=== PATIENT | female | born 1990 | race Caucasian/White ===

== ENCOUNTER 2020-05-09 08:00 | Emergency (ER) | payer SELFPAY ==
--- NOTE | 2020-05-09 08:29 | EDM.PDOC ---
ED HPI GENERAL MEDICAL PROBLEM - General Chief Complaint: Abdominal Pain Stated Complaint: HEAVY MENSTRAL BAD CRAMPS Time Seen by Provider: 05/09/20 08:29 Source of Information: Reports: Patient, RN, RN Notes Reviewed History Limitations: Reports: No Limitations - History of Present Illness INITIAL COMMENTS - FREE TEXT/NARRATIVE: Patient presents to ER with complaint of lower abdominal cramping that began yesterday. Patient states she felt she had a gas pain, went to the bathroom, but did vomit quite a bit. She did begin bleeding vaginally at that time. Patient states that she is 1 week ahead of her period. States she generally has a heavy period, but this 1 seems heavier than normal. Patient states she is not on control, as they are trying to get . Patient also states she has had 1 miscarriage in the past. Admits to still having her appendix, gallbladder. Denies fever chills, admits to nausea, vomiting. States last bowel movement was this morning, and states she does need to have another bowel movement. States these have been normal for her. Patient states she did soak through 3 pads last night. States she is on her second pad today. Patient states she has been using ibuprofen for pain, little relief. Onset: Gradual Onset Date: 05/08/20 Lower Abdomen Pain Score (Numeric/FACES): 6 - Related Data Allergies Allergy/AdvReac Type Severity Reaction Status Date / Time No Known Allergies Allergy Verified 05/09/20 08:14 Home Meds: Home Meds Ondansetron [Zofran ODT] 4 mg PO Q6H PRN #10 tab.dis 10/25/18 [Rx] Albuterol Sulfate [Albuterol Sulfate Hfa] 2 inh INH Q4HR PRN 10/26/18 [History] Budesonide/Formoterol Fumarate [Symbicort 80-4.5 Mcg Inhaler] 2 inh INH DAILY 10/26/18 [History] Sucralfate [Carafate] 1 tab PO BID 05/09/20 [History] Past Medical History HEENT History: Reports: None Cardiovascular History: Reports: None Respiratory History: Reports: Asthma Gastrointestinal History: Reports: Hiatal Hernia Other Gastrointestinal History: ulcers Genitourinary History: Reports: None 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 Musculoskeletal History: Reports: None Neurological History: Reports: Seizure Psychiatric History: Reports: None Endocrine/Metabolic History: Reports: None, Obesity/BMI 30+ Hematologic History: Reports: None Immunologic History: Reports: None Oncologic (Cancer) History: Reports: None Dermatologic History: Reports: None - Infectious Disease History Infectious Disease History: Reports: Hepatitis C - Past Surgical History Head Surgeries/Procedures: Reports: None Social & Family History - Family History Family Medical History: Noncontributory - Tobacco Use Smoking Status *Q: Current Every Day Smoker Years of Tobacco use: 11 Packs/Tins Daily: 0.5 Second Hand Smoke Exposure: No - Caffeine Use Caffeine Use: Reports: Soda - Recreational Drug Use Recreational Drug Type: Reports: Marijuana/Hashish Other Recreational Drug Type: smoked marijuana yesterday - Living Situation & Occupation Living situation: Reports: Single, with Significant Other (Boyfriend) Occupation: Employed ([employer]) ED ROS GENERAL - Review of Systems Review Of Systems: Comprehensive ROS is negative, except as noted in HPI. ED EXAM, GI/ABD - Physical Exam Exam: See Below Exam Limited By: No Limitations General Appearance: Alert, WD/WN, Mild Distress Eyes: Bilateral: Normal Appearance, EOMI Ears: Normal External Exam, Hearing Grossly Normal Nose: Normal Inspection Throat/Mouth: Normal Inspection, Normal Voice, No Airway Compromise Head: Atraumatic, Normocephalic Neck: Normal Inspection, Supple, Non-Tender, Full Range of Motion Respiratory/Chest: No Respiratory Distress, Lungs Clear, Normal Breath Sounds, N o Accessory Muscle Use, Chest Non-Tender Cardiovascular: Normal Peripheral Pulses, Regular Rate, Rhythm, No Edema, No Gallop, No JVD, No Murmur, No Rub GI/Abdominal Exam: Normal Bowel Sounds, Soft, No Distention, Tender (LLQ, RLQ) (Female) Exam: Deferred Rectal (Female) Exam: Deferred Back Exam: Normal Inspection, Full Range of Motion, NT Extremities: Normal Inspection, Normal Range of Motion, Non-Tender, Normal Capillary Refill, No Pedal Edema Neurological: Alert, Oriented, CN II-XII Intact, Normal Cognition, Normal Gait, Normal Reflexes, No Motor/Sensory Deficits Psychiatric: Normal Affect, Normal Mood Skin Exam: Warm, Dry, Intact, Normal Color, No Rash Lymphatic: No Adenopathy Course - Vital Signs Last Recorded V/S: Last Vital Signs Temp 97.6 F 05/09/20 08:08 Pulse 84 09/18/20 08:08 Resp 18 05/09/20 08:08 BP 126/79 05/09/20 08:08 Pulse Ox 100 05/09/20 08:08 - Orders/Labs/Meds Labs: Laboratory Tests 05/09/20 05/09/20 05/09/20 Range/Units 08:39 08:39 08:39 WBC (5.0-10.0) 10^3/uL RBC (4.2-5.4) 10^6/uL Hgb (12.0-16.0) g/dL Hct (37.0-47.0) % MCV (80-100) fL MCH (27.0-34.0) pg MCHC (33.0-35.0) g/dL Plt Count (150-450) 10^3/uL Neut % (Auto) (42.2-75.2) % Lymph % (Auto) (20.5-50.1) % [place] % (Auto) (2-8) % Eos % (Auto) (1.0-3.0) % Baso % (Auto) (0.0-1.0) % Sodium (136-145) mmol/L Potassium (3.5-5.1) mmol/L Chloride (98-107) mmol/L Carbon Dioxide (21-32) mmol/L Anion Gap (7-13) mEq/L BUN (7-18) mg/dL Creatinine (0.55-1.02) mg/dL Est Cr Clr Drug Dosing mL/min Estimated GFR (MDRD) BUN/Creatinine Ratio (No establ ref range) Glucose (74-99) mg/dL Calcium (8.5-10.1) mg/dL Total Bilirubin (0.2-1.0) mg/dL AST (15-37) U/L ALT (14-59) U/L Alkaline Phosphatase (46-116) U/L Total Protein (6.4-8.2) g/dL Albumin (3.4-5.0) g/dL Globulin Albumin/Globulin Ratio Urine Color Dark yellow (YELLOW) Urine Appearance Cloudy (CLEAR) Urine pH 7.5 (5.0-9.0) Ur Specific [place] 1.025 (1.005-1.030) Urine Protein 100 H (NEGATIVE) Urine Glucose (UA) Negative (NEGATIVE) Urine Ketones Negative (NEGATIVE) Urine Occult Blood Large H (NEGATIVE) Urine Nitrite Negative (NEGATIVE) Urine Bilirubin Negative (NEGATIVE) Urine Urobilinogen 0.2 (0.2-1.0) mg/dL Ur Leukocyte Esterase Negative (NEGATIVE) Urine RBC 75-100 H /HPF Urine WBC 0-5 (0-5/HPF) /HPF Ur Epithelial Cells Many H (NOT SEEN) /HPF Urine Bacteria Many H (0-FEW/HPF) /HPF Urine HCG, Qual Negative Urine Opiates Screen Negative (NEGATIVE) Ur Oxycodone Screen Negative (NEGATIVE) Urine Methadone Screen Negative (NEGATIVE) Ur Barbiturates Screen Negative (NEGATIVE) U Tricyclic Antidepress Negative (NEGATIVE) Ur Phencyclidine Scrn Negative (NEGATIVE) Ur Amphetamine Screen Negative (NEGATIVE) U Methamphetamines Scrn Negative (NEGATIVE) Urine MDMA Screen Negative (NEGATIVE) U Benzodiazepines Scrn Negative (NEGATIVE) Urine Cocaine Screen Negative (NEGATIVE) U Marijuana (THC) Screen Positive H (NEGATIVE) 05/09/20 05/09/20 Range/Units 09:03 09:03 WBC 8.7 (5.0-10.0) 10^3/uL RBC 4.68 (4.2-5.4) 10^6/uL Hgb 13.5 (12.0-16.0) g/dL Hct 41.7 (37.0-47.0) % MCV 89.1 (80-100) fL MCH 28.8 (27.0-34.0) pg MCHC 32.4 L (33.0-35.0) g/dL Plt Count 245 (150-450) 10^3/uL Neut % (Auto) 54.7 (42.2-75.2) % Lymph % (Auto) 32.0 (20.5-50.1) % [place] % (Auto) 7.6 (2-8) % Eos % (Auto) 5.1 H (1.0-3.0) % Baso % (Auto) 0.6 (0.0-1.0) % Sodium 141 (136-145) mmol/L Potassium 4.0 (3.5-5.1) mmol/L Chloride 106 (98-107) mmol/L Carbon Dioxide 28 (21-32) mmol/L Anion Gap 11.0 (7-13) mEq/L BUN 15 (7-18) mg/dL Creatinine 0.75 (0.55-1.02) mg/dL Est Cr Clr Drug Dosing 92.38 mL/min Estimated GFR (MDRD) > 60 BUN/Creatinine Ratio 20.0 (No establ ref range) Glucose 88 (74-99) mg/dL Calcium 8.2 L (8.5-10.1) mg/dL Total Bilirubin 0.2 (0.2-1.0) mg/dL AST 23 (15-37) U/L ALT 58 (14-59) U/L Alkaline Phosphatase 46 (46-116) U/L Total Protein 6.6 (6.4-8.2) g/dL Albumin 3.3 L (3.4-5.0) g/dL Globulin 3.3 Albumin/Globulin Ratio 1.00 Urine Color (YELLOW) Urine Appearance (CLEAR) Urine pH (5.0-9.0) Ur Specific [place] (1.005-1.030) Urine Protein (NEGATIVE) Urine Glucose (UA) (NEGATIVE) Urine Ketones (NEGATIVE) Urine Occult Blood (NEGATIVE) Urine Nitrite (NEGATIVE) Urine Bilirubin (NEGATIVE) Urine Urobilinogen (0.2-1.0) mg/dL Ur Leukocyte Esterase (NEGATIVE) Urine RBC /HPF Urine WBC (0-5/HPF) /HPF Ur Epithelial Cells (NOT SEEN) /HPF Urine Bacteria (0-FEW/HPF) /HPF Urine HCG, Qual Urine Opiates Screen (NEGATIVE) Ur Oxycodone Screen (NEGATIVE) Urine Methadone Screen (NEGATIVE) Ur Barbiturates Screen (NEGATIVE) U Tricyclic Antidepress (NEGATIVE) Ur Phencyclidine Scrn (NEGATIVE) Ur Amphetamine Screen (NEGATIVE) U Methamphetamines Scrn (NEGATIVE) Urine MDMA Screen (NEGATIVE) U Benzodiazepines Scrn (NEGATIVE) Urine Cocaine Screen (NEGATIVE) U Marijuana (THC) Screen (NEGATIVE) Meds: Medications Discontinued Medications Generic Name Dose Route Start Last Admin Trade Name Freq PRN Reason Stop Dose Admin Acetaminophen 650 mg 05/09/20 09:21 Tylenol PO 05/09/20 09:22 NOW ONE - Re-Assessments/Exams Free Text/Narrative Re-Assessment/Exam: 05/09/20 09:39 Laboratory findings discussed with patient. Treatment plan discussed and patient agrees. States she has set up with a new provider, has an appointment on Tuesday. Patient encouraged to return to the ER if things worsen. Departure - Departure Time of Disposition: 09:39 Disposition: Home, Self-Care 01 Condition: Fair Clinical Impression: Severe menstrual cramps, Menorrhagia with irregular cycle - Discharge Information *PRESCRIPTION DRUG MONITORING PROGRAM REVIEWED*: No *COPY OF PRESCRIPTION DRUG MONITORING REPORT IN PATIENT SUNNI: No Instructions: Abdominal Pain, Adult, [id number], Menorrhagia, [id number], Dysmenorrhea, [id number] Forms: ED Department Discharge Additional Instructions: Continue using Tylenol and/or ibuprofen as directed for pain Follow-up with your primary care provider on Tuesday Return to the ER with any worsening of problems Sepsis Event Note (ED) - Evaluation Sepsis Screening Result: No Definite Risk - Focused Exam Vital Signs: Vital Signs Temp Pulse Resp BP Pulse Ox 05/09/20 08:08 97.6 F 84 18 126/79 100
[2020-05-09] MEDS ORDERED: Acetaminophen 325 MG Tab PO ONE (09:21)
[2020-05-09 09:30] LABS: CHLORIDE,CL 106 mmol/L (98-107); SODIUM,NA 141 mmol/L (136-145)
== END 2020-05-09 09:50 | disposition home or self-care (01) ==
LOC: DL.ED 08:00
DX: N92.1 Excessive and frequent menstruation with irregular cycle (principal); N94.6 Dysmenorrhea, unspecified; J45.909 Unspecified asthma, uncomplicated; E66.9 Obesity, unspecified; F17.210 Nicotine dependence, cigarettes, uncomplicated; Z68.31 Body mass index [BMI] 31.0-31.9, adult; Z79.899 Other long term (current) drug therapy
CPT/HCPCS: 36415; 80053; 80305-QW; 81001; 81025; 85025; 99283; 99284; A9270-GY

== ENCOUNTER 2020-07-05 08:27 | Emergency (ER) | payer MEDICAID ==
[2020-07-05] MEDS ORDERED: Sodium Chloride 0.9% 10 ML Syringe FLUSH PRN (08:43)
[2020-07-05] MEDS ORDERED: Ondansetron 4 MG/2 ML SDV IVPUSH ONE (08:43)
[2020-07-05] MEDS ORDERED: Butorphanol 2 MG/ML SDV IVPUSH ONE (08:45)
[2020-07-05] MEDS ORDERED: Sodium Chloride 0.9% 1,000 ML IV ONE (08:46)
--- NOTE | 2020-07-05 08:59 | EDM.PDOC ---
ED HPI GENERAL MEDICAL PROBLEM - General Chief Complaint: Gastrointestinal Problem Stated Complaint: VOMMITING ALL NIGHT CANT STOP Time Seen by Provider: 07/05/20 08:40 Source of Information: Reports: Patient History Limitations: Reports: No Limitations - History of Present Illness INITIAL COMMENTS - FREE TEXT/NARRATIVE: Patient is here for epigastric pain that has been going on for about a week and vomiting since last night. She admits to drinking last night. She has had epigastric pain in the past similar to this, but not as bad. She does take omeprazole regularly for her symptoms, but threw up her dose this morning. She is just coming off her last period. The vomit is yellow in color. No blood noted. Her last bowel movement was this morning and was diarrhea. The diarrhea started last night as well. Abdomen Pain Score (Numeric/FACES): 4 - Related Data Allergies Allergy/AdvReac Type Severity Reaction Status Date / Time No Known Allergies Allergy Verified 07/05/20 08:39 Home Meds: Home Meds Ondansetron [Zofran ODT] 4 mg PO Q6H PRN #10 tab.dis 10/25/18 [Rx] Albuterol Sulfate [Albuterol Sulfate Hfa] 2 inh INH Q4HR PRN 10/26/18 [History] Budesonide/Formoterol Fumarate [Symbicort 80-4.5 Mcg Inhaler] 2 inh INH DAILY 10/26/18 [History] Sucralfate [Carafate] 1 tab PO BID 05/09/20 [History] Omeprazole 20 mg PO DAILY 07/05/20 [History] Past Medical History HEENT History: Reports: None Cardiovascular History: Reports: None Respiratory History: Reports: Asthma Gastrointestinal History: Reports: Hiatal Hernia Other Gastrointestinal History: ulcers Genitourinary History: Reports: None 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 Musculoskeletal History: Reports: None Neurological History: Reports: Seizure Psychiatric History: Reports: None Endocrine/Metabolic History: Reports: None, Obesity/BMI 30+ Hematologic History: Reports: None Immunologic History: Reports: None Oncologic (Cancer) History: Reports: None Dermatologic History: Reports: None - Infectious Disease History Infectious Disease History: Reports: Hepatitis C - Past Surgical History Head Surgeries/Procedures: Reports: None Social & Family History - Family History Family Medical History: No Pertinent Family History - Caffeine Use Caffeine Use: Reports: Soda - Living Situation & Occupation Living situation: Reports: Single, with Significant Other (Boyfriend) Occupation: Employed ([employer]) ED ROS GENERAL - Review of Systems Review Of Systems: Comprehensive ROS is negative, except as noted in HPI. ED EXAM, GI/ABD - Physical Exam Exam: See Below Exam Limited By: No Limitations General Appearance: Alert, WD/WN, Mild Distress (due to pain) Ears: Normal External Exam Head: Atraumatic, Normocephalic Neck: Normal Inspection, Supple, Non-Tender Respiratory/Chest: No Respiratory Distress, Lungs Clear, Normal Breath Sounds, No Accessory Muscle Use, Chest Non-Tender Cardiovascular: Normal Peripheral Pulses, Regular Rate, Rhythm, No Edema, No Murmur GI/Abdominal Exam: Normal Bowel Sounds, Soft, No Distention, No Mass, Tender (epigastric) (Female) Exam: Deferred Rectal (Female) Exam: Deferred Back Exam: Normal Inspection Extremities: Normal Inspection, Normal Range of Motion Neurological: Alert, Oriented, Normal Cognition, Normal Gait, Normal Reflexes Psychiatric: Normal Affect, Normal Mood Skin Exam: Warm, Dry, Intact, Normal Color, No Rash Lymphatic: No Adenopathy Course - Vital Signs Last Recorded V/S: Last Vital Signs Temp 96.1 F L 07/05/20 08:40 Pulse 78 07/05/20 08:40 Resp 16 07/05/20 08:40 BP 126/70 07/05/20 08:40 Pulse Ox 98 07/05/20 08:40 - Orders/Labs/Meds Orders: Active Orders 24 hr Category Date Time Status Peripheral IV Care [RC] . DIRECTED Care 07/05/20 08:43 Ordered GI Cocktail Med 07/05/20 10:06 Once 30 ml PO ONETIME ONE Sodium Chloride 0.9% [Saline Flush] Med 07/05/20 08:43 Ordered 10 ml FLUSH ASDIRECTED PRN Peripheral IV Insertion Adult [OM.PC] Stat Oth 07/05/20 08:43 Ordered Medication Orders Sodium Chloride (Saline Flush) 10 ml FLUSH ASDIRECTED PRN PRN Reason: Keep Vein Open Last Admin: 07/05/20 08:58 Dose: 10 ml Documented by: BUD Labs: Laboratory Tests 07/05/20 07/05/20 07/05/20 Range/Units 08:41 08:41 08:41 WBC 15.2 H (5.0-10.0) 10^3/uL RBC 5.38 (4.2-5.4) 10^6/uL Hgb 15.8 D (12.0-16.0) g/dL Hct 46.7 (37.0-47.0) % MCV 86.8 (80-100) fL MCH 29.4 (27.0-34.0) pg MCHC 33.8 (33.0-35.0) g/dL Plt Count 271 (150-450) 10^3/uL Neut % (Auto) 85.4 H (42.2-75.2) % Lymph % (Auto) 11.0 L (20.5-50.1) % [place] % (Auto) 2.7 (2-8) % Eos % (Auto) 0.7 L (1.0-3.0) % Baso % (Auto) 0.2 (0.0-1.0) % Sodium 143 (136-145) mmol/L Potassium 4.1 (3.5-5.1) mmol/L Chloride 105 (98-107) mmol/L Carbon Dioxide 26 (21-32) mmol/L Anion Gap 16.1 H (7-13) mEq/L BUN 14 (7-18) mg/dL Creatinine 0.95 (0.55-1.02) mg/dL Est Cr Clr Drug Dosing 72.93 mL/min Estimated GFR (MDRD) > 60 BUN/Creatinine Ratio 14.7 (No establ ref range) Glucose 175 H (74-99) mg/dL Calcium 10.1 D (8.5-10.1) mg/dL Total Bilirubin 0.4 (0.2-1.0) mg/dL AST 96 H (15-37) U/L ALT 176 H (14-59) U/L Alkaline Phosphatase 75 (46-116) U/L Total Protein 8.5 H (6.4-8.2) g/dL Albumin 4.3 (3.4-5.0) g/dL Globulin 4.2 Albumin/Globulin Ratio 1.0 Lipase 102 (73-393) U/L Urine HCG, Qual Urine Opiates Screen (NEGATIVE) Ur Oxycodone Screen (NEGATIVE) Urine Methadone Screen (NEGATIVE) Ur Barbiturates Screen (NEGATIVE) U Tricyclic Antidepress (NEGATIVE) Ur Phencyclidine Scrn (NEGATIVE) Ur Amphetamine Screen (NEGATIVE) U Methamphetamines Scrn (NEGATIVE) Urine MDMA Screen (NEGATIVE) U Benzodiazepines Scrn (NEGATIVE) Urine Cocaine Screen (NEGATIVE) U Marijuana (THC) Screen (NEGATIVE) Ethyl Alcohol < 3 (0) mg/dL 07/05/20 07/05/20 Range/Units 08:50 08:50 WBC (5.0-10.0) 10^3/uL RBC (4.2-5.4) 10^6/uL Hgb (12.0-16.0) g/dL Hct (37.0-47.0) % MCV (80-100) fL MCH (27.0-34.0) pg MCHC (33.0-35.0) g/dL Plt Count (150-450) 10^3/uL Neut % (Auto) (42.2-75.2) % Lymph % (Auto) (20.5-50.1) % [place] % (Auto) (2-8) % Eos % (Auto) (1.0-3.0) % Baso % (Auto) (0.0-1.0) % Sodium (136-145) mmol/L Potassium (3.5-5.1) mmol/L Chloride (98-107) mmol/L Carbon Dioxide (21-32) mmol/L Anion Gap (7-13) mEq/L BUN (7-18) mg/dL Creatinine (0.55-1.02) mg/dL Est Cr Clr Drug Dosing mL/min Estimated GFR (MDRD) BUN/Creatinine Ratio (No establ ref range) Glucose (74-99) mg/dL Calcium (8.5-10.1) mg/dL Total Bilirubin (0.2-1.0) mg/dL AST (15-37) U/L ALT (14-59) U/L Alkaline Phosphatase (46-116) U/L Total Protein (6.4-8.2) g/dL Albumin (3.4-5.0) g/dL Globulin Albumin/Globulin Ratio Lipase (73-393) U/L Urine HCG, Qual Negative Urine Opiates Screen Negative (NEGATIVE) Ur Oxycodone Screen Negative (NEGATIVE) Urine Methadone Screen Negative (NEGATIVE) Ur Barbiturates Screen Negative (NEGATIVE) U Tricyclic Antidepress Negative (NEGATIVE) Ur Phencyclidine Scrn Negative (NEGATIVE) Ur Amphetamine Screen Negative (NEGATIVE) U Methamphetamines Scrn Negative (NEGATIVE) Urine MDMA Screen Negative (NEGATIVE) U Benzodiazepines Scrn Negative (NEGATIVE) Urine Cocaine Screen Negative (NEGATIVE) U Marijuana (THC) Screen Positive H (NEGATIVE) Ethyl Alcohol (0) mg/dL Meds: Medications Generic Name Dose Route Start Last Admin Trade Name Freq PRN Reason Stop Dose Admin Sodium Chloride 10 ml 07/05/20 08:43 07/05/20 08:58 Saline Flush FLUSH 10 ml ASDIRECTED PRN Administration Keep Vein Open Discontinued Medications Generic Name Dose Route Start Last Admin Trade Name Freq PRN Reason Stop Dose Admin Butorphanol Tartrate 2 mg 07/05/20 08:45 07/05/20 08:55 Stadol IVPUSH 07/05/20 08:46 2 mg ONETIME ONE Administration Sodium Chloride 1,000 mls @ 999 mls/hr 07/05/20 08:46 07/05/20 08:55 Normal Saline IV 07/05/20 09:46 999 mls/hr .BOLUS ONE Administration Ondansetron HCl 4 mg 07/05/20 08:43 07/05/20 08:55 Zofran IVPUSH 07/05/20 08:44 4 mg ONETIME ONE Administration Departure - Departure Time of Disposition: 10:06 Disposition: Home, Self-Care 01 Condition: Good Clinical Impression: Cyclical vomiting syndrome - Discharge Information Instructions: Nausea and Vomiting, Adult, [id number], Cyclic Vomiting Synd lauryn, Adult Forms: ED Department Discharge Additional Instructions: Continue working on quitting the use of marijuana as it makes the nausea and vom iting worse Use over the counter medications for heartburn Continue taking omeprazole as directed by your primary care provider Follow up with your primary care provider in 5-7 days, or sooner if needed Sepsis Event Note (ED) - Evaluation Sepsis Screening Result: No Definite Risk - Focused Exam Vital Signs: Vital Signs Temp Pulse Resp BP Pulse Ox 07/05/20 08:40 96.1 F L 78 16 126/70 98 - My Orders Last 24 Hours: My Active Orders 07/05/20 08:43 Peripheral IV Care [RC] . DIRECTED Sodium Chloride 0.9% [Saline Flush] 10 ml FLUSH ASDIRECTED PRN Peripheral IV Insertion Adult [OM.PC] Stat 07/05/20 10:06 GI Cocktail 30 ml PO ONETIME ONE - Assessment/Plan Last 24 Hours: My Active Orders 07/05/20 08:43 Peripheral IV Care [RC] . DIRECTED Sodium Chloride 0.9% [Saline Flush] 10 ml FLUSH ASDIRECTED PRN Peripheral IV Insertion Adult [OM.PC] Stat 07/05/20 10:06 GI Cocktail 30 ml PO ONETIME ONE
[2020-07-05 09:06] LABS: ANION GAP 16.1 mEq/L (7-13); CHLORIDE,CL 105 mmol/L (98-107); SODIUM,NA 143 mmol/L (136-145)
[2020-07-05] MEDS ORDERED: GI Cocktail Oral Solution 30 ML PO ONE (10:06)
== END 2020-07-05 10:14 | disposition home or self-care (01) ==
LOC: DL.ED 08:27
DX: R11.15 Cyclical vomiting syndrome unrelated to migraine (principal); J45.909 Unspecified asthma, uncomplicated; E66.9 Obesity, unspecified; Z68.29 Body mass index [BMI] 29.0-29.9, adult
CPT/HCPCS: 36415; 80053; 80305; 80307; 81025; 83690; 85025; 96374; 96375; 99283; 99284; A9270; J0595; J2405; J7030

== ENCOUNTER 2020-07-06 09:37 | Emergency (ER) | payer MEDICAID, OTHER ==
[2020-07-06] MEDS ORDERED: Ondansetron 4 MG/2 ML SDV IVPUSH ONE (09:53)
[2020-07-06] MEDS ORDERED: Butorphanol 2 MG/ML SDV IVPUSH ONE (09:53)
[2020-07-06] MEDS ORDERED: Sodium Chloride 0.9% 10 ML Syringe FLUSH PRN (09:53)
[2020-07-06] MEDS ORDERED: Sodium Chloride 0.9% 1,000 ML IV ONE (09:53)
--- NOTE | 2020-07-06 09:58 | EDM.PDOC ---
ED HPI GENERAL MEDICAL PROBLEM - General Chief Complaint: Gastrointestinal Problem Stated Complaint: stomache painz Time Seen by Provider: 07/06/20 09:50 Source of Information: Reports: Patient History Limitations: Reports: No Limitations - History of Present Illness INITIAL COMMENTS - FREE TEXT/NARRATIVE: Patient is here again for epigastric pain and vomiting. She was feeling better yesterday and went home for a nap. Last night, it started back up with pain and nausea. She sat in the bathtub for a while with good relief. She denies smoking marijuana or drinking last night. She did smoke a cigarette. She was using zofran at home with relief, but ran out. Reviewed labs from ER visit yesterday. Abdominal Pain Score (Numeric/FACES): 8 - Related Data Allergies Allergy/AdvReac Type Severity Reaction Status Date / Time No Known Allergies Allergy Verified 07/06/20 09:47 Home Meds: Home Meds Albuterol Sulfate [Albuterol Sulfate Hfa] 2 inh INH Q4HR PRN 10/26/18 [History] Budesonide/Formoterol Fumarate [Symbicort 80-4.5 Mcg Inhaler] 2 inh INH DAILY 10/26/18 [History] Sucralfate [Carafate] 1 tab PO BID 05/09/20 [History] Omeprazole 20 mg PO DAILY 07/05/20 [History] Past Medical History HEENT History: Reports: None Cardiovascular History: Reports: None Respiratory History: Reports: Asthma Gastrointestinal History: Reports: Hiatal Hernia Other Gastrointestinal History: ulcers Genitourinary History: Reports: None 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 Musculoskeletal History: Reports: None Neurological History: Reports: Seizure Psychiatric History: Reports: None Endocrine/Metabolic History: Reports: None, Obesity/BMI 30+ Hematologic History: Reports: None Immunologic History: Reports: None Oncologic (Cancer) History: Reports: None Dermatologic History: Reports: None - Infectious Disease History Infectious Disease History: Reports: Hepatitis C - Past Surgical History Head Surgeries/Procedures: Reports: None Social & Family History - Family History Family Medical History: No Pertinent Family History - Caffeine Use Caffeine Use: Reports: Soda - Living Situation & Occupation Living situation: Reports: Single, with Significant Other (Boyfriend) Occupation: Employed ([employer]) ED ROS GENERAL - Review of Systems Review Of Systems: Comprehensive ROS is negative, except as noted in HPI. ED EXAM, GI/ABD - Physical Exam Exam: See Below Exam Limited By: No Limitations General Appearance: Alert, WD/WN, Mild Distress (vomiting) Eyes: Bilateral: Normal Appearance Ears: Normal External Exam Throat/Mouth: Normal Inspection, Normal Lips Head: Atraumatic, Normocephalic Neck: Normal Inspection, Supple, Non-Tender, Full Range of Motion Cardiovascular: Normal Peripheral Pulses, Regular Rate, Rhythm, No Edema, No Murmur GI/Abdominal Exam: Soft, No Distention, Tender (epigastric). No: Guarding, Rebound (Female) Exam: Deferred Rectal (Female) Exam: Deferred Extremities: Normal Inspection, Normal Range of Motion Neurological: Alert, Oriented, Normal Cognition, Normal Gait, Normal Reflexes, No Motor/Sensory Deficits Psychiatric: Normal Affect, Normal Mood Skin Exam: Warm, Dry, Intact, Normal Color, No Rash Lymphatic: No Adenopathy Course - Vital Signs Last Recorded V/S: Last Vital Signs Temp 97.8 F 07/06/20 09:48 Pulse 88 07/06/20 09:48 Resp 20 07/06/20 09:48 BP 174/90 H 07/06/20 09:48 Pulse Ox 100 07/06/20 09:48 - Orders/Labs/Meds Orders: Active Orders 24 hr Category Date Time Status Peripheral IV Care [RC] . DIRECTED Care 07/06/20 09:53 Ordered Sodium Chloride 0.9% [Normal Saline] 1,000 ml Med 07/06/20 09:53 Ordered IV .BOLUS Sodium Chloride 0.9% [Saline Flush] Med 07/06/20 09:53 Ordered 10 ml FLUSH ASDIRECTED PRN Peripheral IV Insertion Adult [OM.PC] Stat Oth 07/06/20 09:53 Ordered Medication Orders Sodium Chloride (Normal Saline) 1,000 mls @ 999 mls/hr IV .BOLUS ONE Stop: 07/06/20 10:53 Last Admin: 07/06/20 10:08 Dose: 999 mls/hr Documented by: Sodium Chloride (Saline Flush) 10 ml FLUSH ASDIRECTED PRN PRN Reason: Keep Vein Open Last Admin: 07/06/20 10:09 Dose: 10 ml Documented by: Meds: Medications Generic Name Dose Route Start Last Admin Trade Name Freq PRN Reason Stop Dose Admin Sodium Chloride 1,000 mls @ 999 mls/hr 07/06/20 09:53 07/06/20 10:08 Normal Saline IV 07/06/20 10:53 999 mls/hr .BOLUS ONE Administration Sodium Chloride 10 ml 07/06/20 09:53 07/06/20 10:09 Saline Flush FLUSH 10 ml ASDIRECTED PRN Administration Keep Vein Open Discontinued Medications Generic Name Dose Route Start Last Admin Trade Name Freq PRN Reason Stop Dose Admin Butorphanol Tartrate 2 mg 07/06/20 09:53 07/06/20 10:09 Stadol IVPUSH 07/06/20 09:54 2 mg ONETIME ONE Administration Ondansetron HCl 4 mg 07/06/20 09:53 07/06/20 10:09 Zofran IVPUSH 07/06/20 09:54 4 mg ONETIME ONE Administration - Re-Assessments/Exams Free Text/Narrative Re-Assessment/Exam: Improved with IV fluids and medications. 07/06/20 10:45 Departure - Departure Time of Disposition: 10:45 (after IV fluids finish) Disposition: Home, Self-Care 01 Condition: Good Clinical Impression: Cyclical vomiting syndrome - Discharge Information Instructions: Cyclic Vomiting Syndrome, Adult Forms: ED Department Discharge Additional Instructions: Continue working on quitting marijuana Prescription for zofran provided Follow up with primary care provider in 1-2 days Sepsis Event Note (ED) - Evaluation Sepsis Screening Result: No Definite Risk - Focused Exam Vital Signs: Vital Signs Temp Pulse Resp BP Pulse Ox 07/06/20 09:48 97.8 F 88 20 174/90 H 100 - My Orders Last 24 Hours: My Active Orders 07/06/20 09:53 Peripheral IV Care [RC] . DIRECTED Sodium Chloride 0.9% [Normal Saline] 1,000 ml IV .BOLUS Sodium Chloride 0.9% [Saline Flush] 10 ml FLUSH ASDIRECTED PRN Peripheral IV Insertion Adult [OM.PC] Stat - Assessment/Plan Last 24 Hours: My Active Orders 07/06/20 09:53 Peripheral IV Care [RC] . DIRECTED Sodium Chloride 0.9% [Normal Saline] 1,000 ml IV .BOLUS Sodium Chloride 0.9% [Saline Flush] 10 ml FLUSH ASDIRECTED PRN Peripheral IV Insertion Adult [OM.PC] Stat
== END 2020-07-06 11:03 | disposition home or self-care (01) ==
LOC: DL.ED 09:37
DX: R11.15 Cyclical vomiting syndrome unrelated to migraine (principal); R10.13 Epigastric pain; J45.909 Unspecified asthma, uncomplicated; F17.210 Nicotine dependence, cigarettes, uncomplicated; E66.9 Obesity, unspecified; Z68.30 Body mass index [BMI] 30.0-30.9, adult; Z79.899 Other long term (current) drug therapy
CPT/HCPCS: 96374; 96375; 99283; J0595; J2405; J7030

== ENCOUNTER 2020-07-07 09:20 | Emergency (ER) | payer MEDICAID ==
[2020-07-07] MEDS ORDERED: Metoclopramide 10 MG/2 ML SDV IVPUSH ONE (09:29)
[2020-07-07] MEDS ORDERED: Sodium Chloride 0.9% 1,000 ML IV ONE (09:29)
--- NOTE | 2020-07-07 09:33 | EDM.PDOC ---
ED HPI GENERAL MEDICAL PROBLEM - General Stated Complaint: SEVERE ABDOMINAL PAIN, WEAK Time Seen by Provider: 07/07/20 09:45 Source of Information: Reports: Patient History Limitations: Reports: No Limitations - History of Present Illness INITIAL COMMENTS - FREE TEXT/NARRATIVE: This 29 yo female patient reports to the ED due to upper abdominal cramping, pain and nausea/vomiting. The patient reports her symptoms started about 1 week ago. The patient has been seen in the ED with similar symptoms for the past 2 days. The patient reports she has not been able to keep her medications down due to the nausea/vomiting. The patient reports she has not smoked marijuana for 5 days, but her nausea/vomiting and abdominal pain have been getting worse. The patient reports she took her Zofran last night at about 1800 and was able to sleep until about 0200 this morning when her symptoms started again. The patient reports she did take a warm bath that improved her symptoms temporarily. The patient reports she attempted to take her Zofran again this morning, but vomited her medication up. The patient reports no abdominal surgical history. The patient reports she does normally take Omeprazole for her stomach, but she has not been able to take that medication due to the nausea/vomiting. The patient reports she did feel better after the past 2 ED visits, but her symptoms returned about 6 hours after discharge from the ED. Duration: Week(s):, Constant, Getting Worse Location: Reports: Abdomen (Upper abdominal pain) Quality: Reports: Ache, Sharp Severity: Severe Improves with: Reports: None Worsens with: Reports: None Context: Reports: Other Associated Symptoms: Reports: Nausea/Vomiting Abdomen Pain Score (Numeric/FACES): 8 - Related Data Allergies Allergy/AdvReac Type Severity Reaction Status Date / Time No Known Allergies Allergy Verified 07/07/20 09:30 Home Meds: Home Meds Albuterol Sulfate [Albuterol Sulfate Hfa] 2 inh INH Q4HR PRN 10/26/18 [History] Budesonide/Formoterol Fumarate [Symbicort 80-4.5 Mcg Inhaler] 2 inh INH DAILY 10/26/18 [History] Sucralfate [Carafate] 1 tab PO BID 05/09/20 [History] Omeprazole 20 mg PO DAILY 07/05/20 [History] Past Medical History HEENT History: Reports: None Cardiovascular History: Reports: None Respiratory History: Reports: Asthma Gastrointestinal History: Reports: Hiatal Hernia Other Gastrointestinal History: ulcers Genitourinary History: Reports: None 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 Musculoskeletal History: Reports: None Neurological History: Reports: Seizure Psychiatric History: Reports: None Endocrine/Metabolic History: Reports: None, Obesity/BMI 30+ Hematologic History: Reports: None Immunologic History: Reports: None Oncologic (Cancer) History: Reports: None Dermatologic History: Reports: None - Infectious Disease History Infectious Disease History: Reports: Hepatitis C - Past Surgical History Head Surgeries/Procedures: Reports: None Social & Family History - Family History Family Medical History: No Pertinent Family History - Caffeine Use Caffeine Use: Reports: Soda - Living Situation & Occupation Living situation: Reports: Single, with Significant Other (Boyfriend) Occupation: Employed ([employer]) ED ROS GENERAL - Review of Systems Review Of Systems: Comprehensive ROS is negative, except as noted in HPI. ED EXAM, GI/ABD - Physical Exam Exam: See Below Exam Limited By: No Limitations General Appearance: Alert, WD/WN, Moderate Distress, Obese Eyes: Bilateral: Normal Appearance, EOMI Ears: Normal External Exam, Normal Canal, Hearing Grossly Normal, Normal TMs Nose: Normal Inspection, Normal Mucosa, No Blood Throat/Mouth: Normal Inspection, Normal Lips, Normal Teeth, Normal Gums, Normal Oropharynx, Normal Voice, No Airway Compromise Head: Atraumatic, Normocephalic Neck: Normal Inspection, Supple, Non-Tender, Full Range of Motion Respiratory/Chest: No Respiratory Distress, Lungs Clear, Normal Breath Sounds, No Accessory Muscle Use, Chest Non-Tender Cardiovascular: Normal Peripheral Pulses, Regular Rate, Rhythm, No Edema, No Gallop, No JVD, No Murmur, No Rub GI/Abdominal Exam: Normal Bowel Sounds, No Organomegaly, No Distention, No Abnormal Bruit, No Mass, Pelvis Stable, Tender (diffuse upper abdominal tenderness) (Female) Exam: Deferred Rectal (Female) Exam: Deferred Back Exam: Normal Inspection, Full Range of Motion, NT Extremities: Normal Inspection, Normal Range of Motion, Non-Tender, Normal Capillary Refill, No Pedal Edema Neurological: Alert, Oriented, CN II-XII Intact, Normal Cognition, Normal Gait, Normal Reflexes, No Motor/Sensory Deficits Psychiatric: Normal Affect, Normal Mood Skin Exam: Warm, Dry, Intact, Normal Color, No Rash Lymphatic: No Adenopathy Course - Vital Signs Last Recorded V/S: Last Vital Signs Temp 35.7 C L 07/07/20 09:31 Pulse 76 07/07/20 09:31 Resp 18 07/07/20 09:31 BP 126/88 07/07/20 09:31 Pulse Ox 99 07/07/20 09:31 - Orders/Labs/Meds Orders: Active Orders 24 hr Category Date Time Status UA W/MICROSCOPIC [URIN] Urgent Lab 07/07/20 09:39 Results Labs: Laboratory Tests 07/07/20 07/07/20 07/07/20 Range/Units 09:37 09:37 09:39 WBC 10.7 H (5.0-10.0) 10^3/uL RBC 4.96 (4.2-5.4) 10^6/uL Hgb 14.5 (12.0-16.0) g/dL Hct 43.8 (37.0-47.0) % MCV 88.3 (80-100) fL MCH 29.2 (27.0-34.0) pg MCHC 33.1 (33.0-35.0) g/dL Plt Count 298 (150-450) 10^3/uL Neut % (Auto) 78.0 H (42.2-75.2) % Lymph % (Auto) 17.6 L (20.5-50.1) % Lipscomb % (Auto) 3.4 (2-8) % Eos % (Auto) 0.7 L (1.0-3.0) % Baso % (Auto) 0.3 (0.0-1.0) % Sodium 144 (136-145) mmol/L Potassium 3.6 (3.5-5.1) mmol/L Chloride 106 (98-107) mmol/L Carbon Dioxide 25 (21-32) mmol/L Anion Gap 16.6 H (7-13) mEq/L BUN 7 (7-18) mg/dL Creatinine 0.86 (0.55-1.02) mg/dL Est Cr Clr Drug Dosing 87.64 mL/min Estimated GFR (MDRD) > 60 BUN/Creatinine Ratio 8.1 (No establ ref range) Glucose 138 H (74-99) mg/dL Calcium 9.6 (8.5-10.1) mg/dL Magnesium 2.0 (1.8-2.4) mg/dL Total Bilirubin 0.5 (0.2-1.0) mg/dL AST 56 H (15-37) U/L ALT 131 H (14-59) U/L Alkaline Phosphatase 65 (46-116) U/L Total Protein 8.0 (6.4-8.2) g/dL Albumin 4.1 (3.4-5.0) g/dL Globulin 3.9 Albumin/Globulin Ratio 1.1 Amylase 73 (25-115) U/L Lipase 86 (73-393) U/L Urine Color Yellow (YELLOW) Urine Appearance Clear (CLEAR) Urine pH 7.0 (5.0-9.0) Ur Specific [place] >= 1.030 (1.005-1.030) Urine Protein Trace H (NEGATIVE) Urine Glucose (UA) Negative (NEGATIVE) Urine Ketones 15 H (NEGATIVE) Urine Occult Blood Negative (NEGATIVE) Urine Nitrite Negative (NEGATIVE) Urine Bilirubin Negative (NEGATIVE) Urine Urobilinogen 0.2 (0.2-1.0) mg/dL Ur Leukocyte Esterase Negative (NEGATIVE) Urine HCG, Qual Urine Opiates Screen (NEGATIVE) Ur Oxycodone Screen (NEGATIVE) Urine Methadone Screen (NEGATIVE) Ur Barbiturates Screen (NEGATIVE) U Tricyclic Antidepress (NEGATIVE) Ur Phencyclidine Scrn (NEGATIVE) Ur Amphetamine Screen (NEGATIVE) U Methamphetamines Scrn (NEGATIVE) Urine MDMA Screen (NEGATIVE) U Benzodiazepines Scrn (NEGATIVE) Urine Cocaine Screen (NEGATIVE) U Marijuana (THC) Screen (NEGATIVE) Ethyl Alcohol < 3 (0) mg/dL 07/07/20 07/07/20 Range/Units 09:39 09:39 WBC (5.0-10.0) 10^3/uL RBC (4.2-5.4) 10^6/uL Hgb (12.0-16.0) g/dL Hct (37.0-47.0) % MCV (80-100) fL MCH (27.0-34.0) pg MCHC (33.0-35.0) g/dL Plt Count (150-450) 10^3/uL Neut % (Auto) (42.2-75.2) % Lymph % (Auto) (20.5-50.1) % Lipscomb % (Auto) (2-8) % Eos % (Auto) (1.0-3.0) % Baso % (Auto) (0.0-1.0) % Sodium (136-145) mmol/L Potassium (3.5-5.1) mmol/L Chloride (98-107) mmol/L Carbon Dioxide (21-32) mmol/L Anion Gap (7-13) mEq/L BUN (7-18) mg/dL Creatinine (0.55-1.02) mg/dL Est Cr Clr Drug Dosing mL/min Estimated GFR (MDRD) BUN/Creatinine Ratio (No establ ref range) Glucose (74-99) mg/dL Calcium (8.5-10.1) mg/dL Magnesium (1.8-2.4) mg/dL Total Bilirubin (0.2-1.0) mg/dL AST (15-37) U/L ALT (14-59) U/L Alkaline Phosphatase (46-116) U/L Total Protein (6.4-8.2) g/dL Albumin (3.4-5.0) g/dL Globulin Albumin/Globulin Ratio Amylase (25-115) U/L Lipase (73-393) U/L Urine Color (YELLOW) Urine Appearance (CLEAR) Urine pH (5.0-9.0) Ur Specific Costa (1.005-1.030) Urine Protein (NEGATIVE) Urine Glucose (UA) (NEGATIVE) Urine Ketones (NEGATIVE) Urine Occult Blood (NEGATIVE) Urine Nitrite (NEGATIVE) Urine Bilirubin (NEGATIVE) Urine Urobilinogen (0.2-1.0) mg/dL Ur Leukocyte Esterase (NEGATIVE) Urine HCG, Qual Negative Urine Opiates Screen Negative (NEGATIVE) Ur Oxycodone Screen Negative (NEGATIVE) Urine Methadone Screen Negative (NEGATIVE) Ur Barbiturates Screen Negative (NEGATIVE) U Tricyclic Antidepress Negative (NEGATIVE) Ur Phencyclidine Scrn Negative (NEGATIVE) Ur Amphetamine Screen Negative (NEGATIVE) U Methamphetamines Scrn Negative (NEGATIVE) Urine MDMA Screen Negative (NEGATIVE) U Benzodiazepines Scrn Negative (NEGATIVE) Urine Cocaine Screen Negative (NEGATIVE) U Marijuana (THC) Screen Positive H (NEGATIVE) Ethyl Alcohol (0) mg/dL Meds: Medications Discontinued Medications Generic Name Dose Route Start Last Admin Trade Name Freq PRN Reason Stop Dose Admin Butorphanol Tartrate 2 mg 07/07/20 11:18 07/07/20 11:26 Stadol IVPUSH 07/07/20 11:19 2 mg ONETIME ONE Administration Hydromorphone HCl 0.5 mg 07/07/20 10:06 07/07/20 10:13 Dilaudid IVPUSH 07/07/20 10:07 0.5 mg ONETIME ONE Administration Hydromorphone HCl 0.5 mg 07/07/20 10:54 07/07/20 11:04 Dilaudid IVPUSH 07/07/20 10:55 0.5 mg ONETIME ONE Administration Sodium Chloride 1,000 mls @ 999 mls/hr 07/07/20 09:29 07/07/20 11:03 Normal Saline IV 07/07/20 10:29 Infused .BOLUS ONE Infusion Iopamidol 100 ml 07/07/20 10:22 07/07/20 11:04 Isovue-300 (61%) IVPUSH 07/07/20 10:23 75 ml ONETIME ONE Administration Metoclopramide HCl 10 mg 07/07/20 09:29 07/07/20 09:40 Reglan IVPUSH 07/07/20 09:30 10 mg ONETIME ONE Administration Ondansetron HCl 4 mg 07/07/20 10:18 07/07/20 10:29 Zofran IVPUSH 07/07/20 10:19 4 mg ONETIME ONE Administration - Re-Assessments/Exams Free Text/Narrative Re-Assessment/Exam: 07/07/20 11:19 The patient was advised of the CT results. The patient reported she has continued to have pain despite previous pain medications given. An order was placed for Stadol IV. Departure - Departure Time of Disposition: 11:32 Disposition: Home, Self-Care 01 Condition: Fair Clinical Impression: Colitis, Cyclical vomiting syndrome - Discharge Information *PRESCRIPTION DRUG MONITORING PROGRAM REVIEWED*: Yes *COPY OF PRESCRIPTION DRUG MONITORING REPORT IN PATIENT SUNNI: Yes Instructions: Abdominal Pain, Adult, [id number], Cyclic Vomiting Syndrome, Adult Forms: ED Department Discharge Care Plan Goals: The patient was advised of the examination, lab and CT results during the visit. The patient was given IV Fluids, IV Reglan (for nausea), IV Zofran (for nausea), IV Dilaudid (for pain) and IV Stadol (for pain) during the visit in the ED. The patient was encouraged to take her Zofran as directed for nausea. The patient was also advised to stick to a BRAT diet (bananas, rice, applesauce and toast) for the next 48 hours with small frequent sips of fluids. The patient should follow-up with her primary care facility for continued evaluation and further treatment. If the patient has any additional symptoms or concerns, the patient should either return to the emergency department or visit her primary care facility. Sepsis Event Note (ED) - Focused Exam Vital Signs: Vital Signs Temp Pulse Resp BP Pulse Ox 07/07/20 09:31 35.7 C L 76 18 126/88 99 - My Orders Last 24 Hours: My Active Orders 07/07/20 09:39 UA W/MICROSCOPIC [URIN] Urgent - Assessment/Plan Last 24 Hours: My Active Orders 07/07/20 09:39 UA W/MICROSCOPIC [URIN] Urgent
[2020-07-07 10:02] LABS: ANION GAP 16.6 mEq/L (7-13); CHLORIDE,CL 106 mmol/L (98-107); SODIUM,NA 144 mmol/L (136-145)
[2020-07-07] MEDS ORDERED: HYDROmorphone 0.5 MG/0.5 ML Syringe IVPUSH ONE ×2 (10:06→10:54)
[2020-07-07] MEDS ORDERED: Ondansetron 4 MG/2 ML SDV IVPUSH ONE (10:18)
[2020-07-07] MEDS ORDERED: Iopamidol 612 MG/ML 100 ML Bottle IVPUSH ONE (10:22)
--- NOTE | 2020-07-07 11:13 | CT ---
PROCEDURE INFORMATION: Exam: CT Abdomen And Pelvis With Contrast Exam date and time: 07/07/2020 10:34 AM Age: 29 years old Clinical indication: Abdominal pain; Additional info: Upper abdominal pain TECHNIQUE: Imaging protocol: Computed tomography of the abdomen and pelvis with intravenous contrast. Radiation optimization: All CT scans at this facility use at least one of these dose optimization techniques: automated exposure control; mA and/or kV adjustment per patient size (includes targeted exams where dose is matched to clinical indication); or iterative reconstruction. Contrast material: ISOVUE; Contrast volume: 75 ml; Contrast route: INTRAVENOUS (IV); COMPARISON: No relevant prior studies available. FINDINGS: Liver: Normal. No mass. Gallbladder and bile ducts: Normal. No calcified stones. No ductal dilation. Pancreas: Normal. No ductal dilation. Spleen: Normal. No splenomegaly. Adrenal glands: Normal. No mass. Kidneys and ureters: Normal. No hydronephrosis. Stomach and bowel: Mild wall thickening of the upper ascending, transverse and descending colon, proximal sigmoid colon extension weighted by luminal contraction. Appendix: The vermiform appendix is normal. Intraperitoneal space: Unremarkable. No free air. No significant fluid collection. Vasculature: Unremarkable. No abdominal aortic aneurysm. Lymph nodes: No enlarged lymph nodes. Urinary bladder: Unremarkable as visualized. Reproductive: Unremarkable as visualized. Bones/joints: L5-S1 spondylosis and degenerative disc disease with bilateral neural foraminal stenosis. Soft tissues: Unremarkable. IMPRESSION: Mild wall colonic wall thickening as described. The finding is suggestive of mild nonspecific colitis. Clinical correlation with the patient's specific symptomatology is recommended.
[2020-07-07] MEDS ORDERED: Butorphanol 2 MG/ML SDV IVPUSH ONE (11:18)
== END 2020-07-07 11:31 | disposition home or self-care (01) ==
LOC: DL.ED 09:20
DX: K52.9 Noninfective gastroenteritis and colitis, unspecified (principal); R11.15 Cyclical vomiting syndrome unrelated to migraine; E66.9 Obesity, unspecified; J45.909 Unspecified asthma, uncomplicated; Z68.28 Body mass index [BMI] 28.0-28.9, adult; Z79.899 Other long term (current) drug therapy
CPT/HCPCS: 36415; 74177; 80053; 80305; 80307; 81001; 81025; 82150; 83690; 83735; 85025; 96374; 96375; 96376; 99283; 99284; J0595; J1170; J2405; J2765; J7030; Q9967

== ENCOUNTER 2020-07-10 06:25 | Day surgery (SDC) | payer MEDICAID ==
[~2020-07-10 06:25] MED LIST: Midazolam 1 MG/ML 2 ML SDV ONE; fentaNYL 100 MCG/2 ML SDV ONE
[2020-07-10] MEDS ORDERED: Midazolam 1 MG/ML 2 ML SDV IV ONE ×3 (06:26→08:43)
[2020-07-10] MEDS ORDERED: fentaNYL 100 MCG/2 ML SDV IV ONE ×3 (06:26→08:42)
[2020-07-10] MEDS ORDERED: Dextrose 5%-0.45% NaCl 1,000 ML IV SCH (06:45)
--- NOTE | 2020-07-10 12:03 | PN ---
DATE: 07/10/2020 SUBJECTIVE: Continues to have difficulties of abdominal pain. No vomiting. No radiation of pain to the back. Has abdominal pain similar to what she has had all along, unchanged. Stable vital signs. Anxious, agitated at times. Demanding narcotics in form of Stadol or stronger medication. OBJECTIVE: Vital Signs: Stable. Abdomen: Soft. No areas of significant tenderness elicited. Bowel sounds active. Lungs: Clear. Heart: S1, S2 regular. PLAN: The patient advised of EGD findings. Scheduled for MRCP and MRI with contrast. Followup as scheduled and to return early if needed. She mentions of going to emergency room for pain medication. [facility] /[id number]
--- NOTE | 2020-07-10 15:13 | OR ---
DATE: 07/10/2020 PROCEDURE: Esophagogastroduodenoscopy and multiple pinch biopsies. INSTRUMENT USED: [id number] Olympus video panendoscope. PREMEDICATIONS: No oral or topical anesthesia used. Fentanyl 100 mcg intravenous, Versed 2 mg intravenous. The procedure was done under pulse oximetry, BP recording, and monitoring engineer. INDICATION: The patient with persistent abdominal pain, vomiting and intermittent diarrhea, unexplained and not responsive to medical measures, on PPI. Esophagogastroduodenoscopy is performed for detection of any active erosive lesions, Boswell esophagus and/or malignancy also under consideration, H. pylori status to be determined, small bowel biopsies to be obtained for celiac disease, endoscopic hemostasis therapy if needed. DESCRIPTION OF PROCEDURE: The scope was passed with ease. Adequate visualization of the esophagus was made from proximal to distal areas. No upper esophageal lesions identified. No distal esophageal stricture. No uphill or downhill esophageal varices. No Lynsey-Patiño tear. No evidence of erosive esophagitis by [place] criteria. No esophageal polyp or tumor mass identified. Z-line was seen at around 40 cm distal to the oral verge, configuration consistent with grade 1 by ZAP classification. No proximal gastric varices noted. Gastric fundus examination by retroflexion showed no polypoid lesions. No gastric ulcer, malignant mass, or vascular ectasia identified. Duodenal bulb showed no ulcer. Visualized second part of the duodenum was unremarkable. Multiple pinch biopsies, 4 in number taken from different areas of the second part of the duodenum and tissues were also obtained from the duodenal bulb at 9 and 4 o'clock positions and sent for any histopathologic evidence of celiac disease. Multiple pinch biopsies were also taken from the gastric antrum and proximal body and sent for PyloriTek test for H. pylori and histopathology. No bleeding was noted from any of the visualized areas at the completion of the examination. Photographs were taken of duodenal bulb, gastric antrum, fundus, and distal esophagus. IMPRESSION: Normal study. The patient tolerated the procedure well. [facility] /[id number]
== END 2020-07-10 10:40 | disposition home or self-care (01) ==
LOC: DL.ENDO 06:25
PROVIDERS: ATTEND Internal Medicine Gastroenterology
DX: R11.2 Nausea with vomiting, unspecified (principal); R10.13 Epigastric pain; J45.40 Moderate persistent asthma, uncomplicated; K44.9 Diaphragmatic hernia without obstruction or gangrene; F12.90 Cannabis use, unspecified, uncomplicated; B18.2 Chronic viral hepatitis C; E66.01 Morbid (severe) obesity due to excess calories; Z98.890 Other specified postprocedural states; Z79.899 Other long term (current) drug therapy; Z68.30 Body mass index [BMI] 30.0-30.9, adult
CPT/HCPCS: 87077; J2250; J3010; J7042

== ENCOUNTER 2020-07-10 13:02 | Emergency (ER) | payer MEDICAID ==
[2020-07-10] MEDS ORDERED: Promethazine 25 MG/ML SDV IM ONE (15:26)
[2020-07-10] MEDS ORDERED: Dicyclomine 20 MG/2 ML SDV IM ONE (15:27)
[2020-07-10 15:41] LABS: ACETAMINOPHEN 0 ug/mL (10-30 (Therapeutic)); ANION GAP 17.5 mEq/L (7-13); CHLORIDE,CL 103 mmol/L (98-107); SODIUM,NA 143 mmol/L (136-145)
--- NOTE | 2020-07-10 15:44 | EDM.PDOC ---
<Arnie Lobato M - Last Filed: 07/10/20 18:02> ED HPI GENERAL MEDICAL PROBLEM - General Chief Complaint: Abdominal Pain Stated Complaint: AMBULANCE Time Seen by Provider: 07/10/20 15:25 Source of Information: Reports: Patient History Limitations: Reports: No Limitations - History of Present Illness INITIAL COMMENTS - FREE TEXT/NARRATIVE: This 29 yo female patient reports to the ED with increased abdominal pain. The patient has been seen in the ED multiple times this week with similar symptoms and was also seen by Dr. Hassan through [facility]. The patient did have an EGD this morning by Dr. Hassan demonstrating no abnormalities. The patient reports she was in pain this morning after the procedure, but was not given anything for pain control at that time. The patient did go home, but ended up calling the ambulance due to increased pain throughout her abdomen. The patient also reports she has been vomiting all day. Onset: Unknown/Unsure Duration: Day(s):, Constant Location: Reports: Abdomen Quality: Reports: Ache, Sharp, Stabbing Severity: Severe Improves with: Reports: None Worsens with: Reports: None Context: Reports: Other Associated Symptoms: Reports: Nausea/Vomiting Upper Abdomen Pain Score (Numeric/FACES): 10 - Related Data Allergies Allergy/AdvReac Type Severity Reaction Status Date / Time No Known Allergies Allergy Verified 07/10/20 14:27 Home Meds: Home Meds Albuterol Sulfate [Albuterol Sulfate Hfa] 2 inh INH Q4HR PRN 10/26/18 [History] Famotidine [Pepcid] 20 mg PO BID 07/10/20 [History] Ondansetron [Zofran] 1 tab PO TID 07/10/20 [History] Past Medical History HEENT History: Reports: None Cardiovascular History: Reports: None Respiratory History: Reports: Asthma Gastrointestinal History: Reports: Hepatitis, Hiatal Hernia Other Gastrointestinal History: ulcers Genitourinary History: Reports: None OPTIONS TRADER History: Reports: None Musculoskeletal History: Reports: None Neurological History: Reports: Seizure Psychiatric History: Reports: None Endocrine/Metabolic History: Reports: None, Obesity/BMI 30+ Hematologic History: Reports: None Immunologic History: Reports: None Oncologic (Cancer) History: Reports: None Dermatologic History: Reports: None - Infectious Disease History Infectious Disease History: Reports: Hepatitis C - Past Surgical History Head Surgeries/Procedures: Reports: None GI Surgical History: Reports: EGD Female Surgical History: Reports: None Neurological Surgical History: Reports: None Social & Family History - Family History Family Medical History: No Pertinent Family History - Tobacco Use Tobacco Use Status *Q: Current Every Day Tobacco User Years of Tobacco use: 11 Packs/Tins Daily: 0.5 - Caffeine Use Caffeine Use: Reports: Soda - Recreational Drug Use Recreational Drug Use: Yes Recreational Drug Type: Reports: Marijuana/Hashish Other Recreational Drug Type: smoked either tuesday or tuesday - Living Situation & Occupation Living situation: Reports: Single, with Significant Other (Boyfriend) Occupation: Employed ([employer]) ED ROS GENERAL - Review of Systems Review Of Systems: Comprehensive ROS is negative, except as noted in HPI. ED EXAM, GI/ABD - Physical Exam Exam: See Below Exam Limited By: No Limitations General Appearance: Alert, WD/WN, Moderate Distress Eyes: Bilateral: Normal Appearance, EOMI Ears: Normal External Exam, Normal Canal, Hearing Grossly Normal, Normal TMs Nose: Normal Inspection, Normal Mucosa, No Blood Throat/Mouth: Normal Inspection, Normal Lips, Normal Teeth, Normal Gums, Normal Oropharynx, Normal Voice, No Airway Compromise Head: Atraumatic, Normocephalic Neck: Normal Inspection, Supple, Non-Tender, Full Range of Motion Respiratory/Chest: No Respiratory Distress, Lungs Clear, Normal Breath Sounds, No Accessory Muscle Use, Chest Non-Tender Cardiovascular: Normal Peripheral Pulses, Regular Rate, Rhythm, No Edema, No Gallop, No JVD, No Murmur, No Rub GI/Abdominal Exam: Guarding, Tender (Female) Exam: Deferred Rectal (Female) Exam: Deferred Back Exam: Normal Inspection, Full Range of Motion, NT Extremities: Normal Inspection Neurological: Alert, Oriented, CN II-XII Intact Psychiatric: Anxious Skin Exam: Warm, Dry, Intact, Normal Color, No Rash Lymphatic: No Adenopathy Departure - Departure Disposition: DC/Tfer to Acute Hospital 02 Condition: Fair Clinical Impression: Abdominal pain Qualifiers: Abdominal location: upper abdomen, unspecified Qualified Code(s): R10.10 - Upper abdominal pain, unspecified - Discharge Information *PRESCRIPTION DRUG MONITORING PROGRAM REVIEWED*: Not Applicable *COPY OF PRESCRIPTION DRUG MONITORING REPORT IN PATIENT SUNNI: Not Applicable Referrals: PCP,None [Primary Care Provider] - Forms: Interfacility Transfer EMTALA Care Plan Goals: Discussed the patient's history, examination, lab and treatments with Dr. Mccarthy. Dr. Mccarthy accepted the patient for continued evaluation and further management as an inpatient at [facility] in [place]. The patient will be transported by [facility]. Sepsis Event Note (ED) - Evaluation Sepsis Screening Result: No Definite Risk <Giovana Hansen - Last Filed: 07/11/20 06:36> Course - Vital Signs Last Recorded V/S: Last Vital Signs Temp 99 F 07/10/20 20:40 Pulse 67 07/10/20 20:40 Resp 17 07/10/20 20:40 BP 144/87 H 07/10/20 20:40 Pulse Ox 100 07/10/20 20:40 - Orders/Labs/Meds Labs: Laboratory Tests 07/10/20 07/10/20 07/10/20 Range/Units 14:40 15:11 15:11 WBC 13.5 H (5.0-10.0) 10^3/uL RBC 5.03 (4.2-5.4) 10^6/uL Hgb 14.6 (12.0-16.0) g/dL Hct 44.2 (37.0-47.0) % MCV 87.9 (80-100) fL MCH 29.0 (27.0-34.0) pg MCHC 33.0 (33.0-35.0) g/dL Plt Count 314 (150-450) 10^3/uL Neut % (Auto) 83.1 H (42.2-75.2) % Lymph % (Auto) 10.7 L (20.5-50.1) % [place] % (Auto) 6.0 (2-8) % Eos % (Auto) 0.1 L (1.0-3.0) % Baso % (Auto) 0.1 (0.0-1.0) % Sodium 143 (136-145) mmol/L Potassium 3.5 (3.5-5.1) mmol/L Chloride 103 (98-107) mmol/L Carbon Dioxide 26 (21-32) mmol/L Anion Gap 17.5 H (7-13) mEq/L BUN 5 L (7-18) mg/dL Creatinine 0.77 (0.55-1.02) mg/dL Est Cr Clr Drug Dosing TNP Estimated GFR (MDRD) > 60 BUN/Creatinine Ratio 6.5 (No establ ref range) Glucose 111 H (74-99) mg/dL Calcium 9.6 (8.5-10.1) mg/dL Magnesium 1.9 (1.8-2.4) mg/dL Total Bilirubin 0.5 (0.2-1.0) mg/dL AST 32 (15-37) U/L ALT 91 H (14-59) U/L Alkaline Phosphatase 56 (46-116) U/L Total Protein 8.1 (6.4-8.2) g/dL Albumin 4.1 (3.4-5.0) g/dL Globulin 4.0 Albumin/Globulin Ratio 1.0 Amylase 97 (25-115) U/L Lipase 61 L (73-393) U/L Urine Color (YELLOW) Urine Appearance (CLEAR) Urine pH (5.0-9.0) Ur Specific [place] (1.005-1.030) Urine Protein (NEGATIVE) Urine Glucose (UA) (NEGATIVE) Urine Ketones (NEGATIVE) Urine Occult Blood (NEGATIVE) Urine Nitrite (NEGATIVE) Urine Bilirubin (NEGATIVE) Urine Urobilinogen (0.2-1.0) mg/dL Ur Leukocyte Esterase (NEGATIVE) Urine RBC /HPF Urine WBC (0-5/HPF) /HPF Ur Epithelial Cells (NOT SEEN) /HPF Calcium Oxalate Crystal (NOT SEEN) /HPF Amorphous Sediment (NOT SEEN) /HPF Urine Bacteria (0-FEW/HPF) /HPF Urine Mucus (NOT SEEN) /LPF Urine Opiates Screen (NEGATIVE) Ur Oxycodone Screen (NEGATIVE) Urine Methadone Screen (NEGATIVE) Acetaminophen 0 L (10-30 (Therapeutic)) ug/mL Ur Barbiturates Screen (NEGATIVE) U Tricyclic Antidepress (NEGATIVE) Ur Phencyclidine Scrn (NEGATIVE) Ur Amphetamine Screen (NEGATIVE) U Methamphetamines Scrn (NEGATIVE) Urine MDMA Screen (NEGATIVE) U Benzodiazepines Scrn (NEGATIVE) Urine Cocaine Screen (NEGATIVE) U Marijuana (THC) Screen (NEGATIVE) SARS CoV-2 RNA Rapid LAN Negative (NEGATIVE) 07/10/20 07/10/20 Range/Units 16:00 16:00 WBC (5.0-10.0) 10^3/uL RBC (4.2-5.4) 10^6/uL Hgb (12.0-16.0) g/dL Hct (37.0-47.0) % MCV (80-100) fL MCH (27.0-34.0) pg MCHC (33.0-35.0) g/dL Plt Count (150-450) 10^3/uL Neut % (Auto) (42.2-75.2) % Lymph % (Auto) (20.5-50.1) % [place] % (Auto) (2-8) % Eos % (Auto) (1.0-3.0) % Baso % (Auto) (0.0-1.0) % Sodium (136-145) mmol/L Potassium (3.5-5.1) mmol/L Chloride (98-107) mmol/L Carbon Dioxide (21-32) mmol/L Anion Gap (7-13) mEq/L BUN (7-18) mg/dL Creatinine (0.55-1.02) mg/dL Est Cr Clr Drug Dosing Estimated GFR (MDRD) BUN/Creatinine Ratio (No establ ref range) Glucose (74-99) mg/dL Calcium (8.5-10.1) mg/dL Magnesium (1.8-2.4) mg/dL Total Bilirubin (0.2-1.0) mg/dL AST (15-37) U/L ALT (14-59) U/L Alkaline Phosphatase (46-116) U/L Total Protein (6.4-8.2) g/dL Albumin (3.4-5.0) g/dL Globulin Albumin/Globulin Ratio Amylase (25-115) U/L Lipase (73-393) U/L Urine Color Yellow (YELLOW) Urine Appearance Clear (CLEAR) Urine pH 8.5 (5.0-9.0) Ur Specific [place] 1.025 (1.005-1.030) Urine Protein 30 H (NEGATIVE) Urine Glucose (UA) Negative (NEGATIVE) Urine Ketones >=160 H (NEGATIVE) Urine Occult Blood Negative (NEGATIVE) Urine Nitrite Negative (NEGATIVE) Urine Bilirubin Negative (NEGATIVE) Urine Urobilinogen 1.0 (0.2-1.0) mg/dL Ur Leukocyte Esterase Negative (NEGATIVE) Urine RBC 0-5 /HPF Urine WBC 0-5 (0-5/HPF) /HPF Ur Epithelial Cells Many H (NOT SEEN) /HPF Calcium Oxalate Crystal Rare (NOT SEEN) /HPF Amorphous Sediment Few (NOT SEEN) /HPF Urine Bacteria Few (0-FEW/HPF) /HPF Urine Mucus Many H (NOT SEEN) /LPF Urine Opiates Screen Negative (NEGATIVE) Ur Oxycodone Screen Negative (NEGATIVE) Urine Methadone Screen Negative (NEGATIVE) Acetaminophen (10-30 (Therapeutic)) ug/mL Ur Barbiturates Screen Negative (NEGATIVE) U Tricyclic Antidepress Negative (NEGATIVE) Ur Phencyclidine Scrn Negative (NEGATIVE) Ur Amphetamine Screen Negative (NEGATIVE) U Methamphetamines Scrn Negative (NEGATIVE) Urine MDMA Screen Negative (NEGATIVE) U Benzodiazepines Scrn Negative (NEGATIVE) Urine Cocaine Screen Negative (NEGATIVE) U Marijuana (THC) Screen Positive H (NEGATIVE) SARS CoV-2 RNA Rapid LAN (NEGATIVE) Meds: Medications Discontinued Medications Generic Name Dose Route Start Last Admin Trade Name Freq PRN Reason Stop Dose Admin Dicyclomine HCl 20 mg 07/10/20 15:27 07/10/20 15:36 Bentyl IM 07/10/20 15:28 20 mg ONETIME ONE Administration Morphine Sulfate 4 mg 07/10/20 17:05 07/10/20 17:15 Morphine IVPUSH 07/10/20 17:06 4 mg ONETIME ONE Administration Ondansetron HCl 4 mg 07/10/20 17:05 07/10/20 17:13 Zofran IVPUSH 07/10/20 17:06 4 mg ONETIME ONE Administration Promethazine HCl 50 mg 07/10/20 15:26 07/10/20 15:35 Phenergan IM 07/10/20 15:27 50 mg ONETIME ONE Administration Departure - Departure Time of Disposition: 20:40 Sepsis Event Note (ED) - Focused Exam Vital Signs: Vital Signs Temp Pulse Resp BP Pulse Ox 07/10/20 20:40 99 F 67 17 144/87 H 100
[2020-07-10] MEDS ORDERED: Morphine 4 MG/ML Syringe IVPUSH ONE (17:05)
[2020-07-10] MEDS ORDERED: Ondansetron 4 MG/2 ML SDV IVPUSH ONE (17:05)
== END 2020-07-10 20:44 ==
LOC: DL.ED 13:02
DX: R10.10 Upper abdominal pain, unspecified (principal); J45.909 Unspecified asthma, uncomplicated; E66.9 Obesity, unspecified; F17.210 Nicotine dependence, cigarettes, uncomplicated
CPT/HCPCS: 36415; 80053; 80305-QW; 80307; 81001; 82150; 83690; 83735; 85025; 96372; 96374; 96375; 99285-25; J0500; J2270; J2405; J2550; U0002

== ENCOUNTER 2020-07-11 23:33 | Emergency (ER) | payer MEDICAID ==
[2020-07-12] MEDS ORDERED: Acetaminophen 325 MG Tab PO ONE (00:03)
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
[2020-07-12] MEDS ORDERED: Diphtheria,Pertussis(Acell),Tetanus Vaccine 0.5 ML Syringe IM ONE (00:57)
== END 2020-07-12 01:11 | disposition home or self-care (01) ==
LOC: DL.ED 23:33
DX: S01.01XA Laceration without foreign body of scalp, initial encounter (principal); S50.12XA Contusion of left forearm, initial encounter; S50.11XA Contusion of right forearm, initial encounter; S60.222A Contusion of left hand, initial encounter; S40.022A Contusion of left upper arm, initial encounter; S30.1XXA Contusion of abdominal wall, initial encounter; F17.210 Nicotine dependence, cigarettes, uncomplicated; Z79.899 Other long term (current) drug therapy; J45.909 Unspecified asthma, uncomplicated; Z23 Encounter for immunization; E66.9 Obesity, unspecified; Z68.29 Body mass index [BMI] 29.0-29.9, adult; Y04.0XXA Assault by unarmed brawl or fight, initial encounter
CPT/HCPCS: 12001; 70450; 90471; 90715; 99284; A9270

== ENCOUNTER 2020-08-19 05:59 | Day surgery (SDC) | payer MEDICAID ==
[2020-08-19] MEDS ORDERED: Midazolam 1 MG/ML 2 ML SDV IV ONE ×7 (06:00→07:24)
[2020-08-19] MEDS ORDERED: Dextrose 5%-0.45% NaCl 1,000 ML IV SCH (06:00)
[2020-08-19] MEDS ORDERED: Sodium Chloride 0.9% 10 ML Syringe FLUSH PRN (06:00)
[2020-08-19] MEDS ORDERED: fentaNYL 100 MCG/2 ML SDV IV ONE ×6 (06:00→07:30)
[2020-08-19] MEDS ORDERED: Midazolam 1 MG/ML 2 ML SDV ONE (06:12)
[2020-08-19] MEDS ORDERED: fentaNYL 100 MCG/2 ML SDV ONE (06:12)
--- NOTE | 2020-08-19 09:27 | OR ---
DATE: 08/19/2020 PROCEDURES: Total colonoscopy, terminal ileoscopy, narrow-band imaging, and multiple pinch biopsies. INSTRUMENT USED: PCF-H190DL Olympus video colonoscope. PREMEDICATIONS: Fentanyl 175 mcg intravenous, Versed 4 mg intravenous. The procedure was done under pulse oximetry, BP recording, and radiation monitor. INDICATION: The patient with chronic intermittent diarrhea and abdominal pain, unexplained and not responsive to medical measures. Recent CT scan suggestive of abnormal colonic wall thickening. Colonoscopic examination is done for detection of any polypoid lesions and removal, biopsies to be obtained for any evidence of microscopic colitis, endoscopic hemostasis therapy if needed. DESCRIPTION OF PROCEDURE: Initial rectal exam was unremarkable. Rigid anoscopy was normal. The colonoscope was passed with ease up to and beyond the ileocecal junction to visualize normal-appearing terminal ileum. NBI views were obtained, multiple pinch biopsies were taken from the terminal ileum and sent for histopathology. Photographs were taken of the normal-appearing cecum. No bleeding was noted from any of the visualized areas at the commencement of the examination. Bowel preparation was found to be adequate, Marshall scale 3 in all the regions, total score 9. No stricture. No vascular ectasia. No large isolated ulcerations seen. No evidence of diffuse inflammatory bowel disease in the form of friability, contact bleeding, or ulcerations. No polyp or tumor mass identified. Probing the proximal sides of folds and flexures using adequate distention and clearing up the stool material, withdrawal of the scope was made. Multiple pinch biopsies were taken from the normal-appearing mucosa of the mid transverse colon, mid descending colon, and rectosigmoid, and sent for any histopathologic evidence of microscopic colitis. No bleeding was noted from any of the visualized areas at the completion of examination. IMPRESSION: Normal study. The patient tolerated the procedure well. [facility] /[id number]
== END 2020-08-19 09:46 | disposition home or self-care (01) ==
LOC: DL.ENDO 05:59
PROVIDERS: ATTEND Internal Medicine Gastroenterology
DX: K52.9 Noninfective gastroenteritis and colitis, unspecified (principal); K21.9 Gastro-esophageal reflux disease without esophagitis; B18.2 Chronic viral hepatitis C; E66.09 Other obesity due to excess calories; F41.1 Generalized anxiety disorder; Z79.899 Other long term (current) drug therapy; Z68.30 Body mass index [BMI] 30.0-30.9, adult
CPT/HCPCS: 81025; J2250; J3010; J7042

== ENCOUNTER 2020-08-27 23:48 | Emergency (ER) | payer MEDICAID ==
[2020-08-28] MEDS ORDERED: LORazepam 1 MG Tab PO ONE (00:27)
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
== END 2020-08-28 00:30 | disposition left against medical advice (07) ==
LOC: DL.ED 23:48
DX: F41.9 Anxiety disorder, unspecified (principal); J45.909 Unspecified asthma, uncomplicated; F32.9 Major depressive disorder, single episode, unspecified; E66.9 Obesity, unspecified; Z77.22 Contact with and (suspected) exposure to environmental tobacco smoke (acute) (chronic); Z68.30 Body mass index [BMI] 30.0-30.9, adult
CPT/HCPCS: 99282; 99284

== ENCOUNTER 2021-02-09 03:53 | Emergency (ER) | payer MEDICAID ==
[2021-02-09 04:53] LABS: ANION GAP 19.8 mEq/L (7-13); CHLORIDE,CL 106 mmol/L (98-107); SODIUM,NA 145 mmol/L (136-145)
[2021-02-09] MEDS ORDERED: Dicyclomine 20 MG/2 ML SDV IM ONE (05:15)
[2021-02-09] MEDS ORDERED: Ondansetron 4 MG/2 ML SDV IV ONE (05:15)
[2021-02-09] MEDS ORDERED: Sodium Chloride 0.9% 1,000 ML IV ONE (05:15)
[2021-02-09] MEDS ORDERED: Iopamidol 612 MG/ML 100 ML Bottle IVPUSH ONE (05:16)
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
[2021-02-09] MEDS ORDERED: HYDROmorphone 1 MG/ML Syringe IVPUSH ONE (05:54)
[2021-02-09] MEDS ORDERED: Metoclopramide 10 MG/2 ML SDV IVPUSH ONE (05:54)
--- NOTE | 2021-02-09 07:06 | CT ---
PROCEDURE INFORMATION: Exam: CT Abdomen And Pelvis With Contrast Exam date and time: 02/09/2021 5:50 AM Age: 30 years old Clinical indication: Vomiting and other: Wbc 16,500; Additional info: Abdominal pain TECHNIQUE: Imaging protocol: Computed tomography of the abdomen and pelvis with contrast. Radiation optimization: All CT scans at this facility use at least one of these dose optimization techniques: automated exposure control; mA and/or kV adjustment per patient size (includes targeted exams where dose is matched to clinical indication); or iterative reconstruction. Contrast material: [id number]; Contrast volume: 100 ml; Contrast route: INTRAVENOUS (IV); COMPARISON: CT Abdomen Pelvis w Cont 07/07/2020 10:34 AM FINDINGS: Liver: Interval appearance of the at least 3.5 cm long linear area of decreased density laterally in the lower right lobe of the liver. Still no enhancing liver mass. Gallbladder and bile ducts: Still no calcified gallstones or biliary ductal dilatation. Pancreas: Pancreas still unremarkable. Spleen: Still no splenomegaly. Adrenal glands: Still no adrenal mass. Kidneys and ureters: Small stone in the left lower kidney still present. Continued ovoid focus of decreased density in the left lower renal cortex measuring at least 13 mm in greatest diameter and probably containing water density. Still no hydronephrosis. Stomach and bowel: Increased fat in the wall of much of the upper colon, likely unchanged. Still no haziness in the fat along the colon. Adhesion of some bowel loops to the right pelvic sidewall still possible. Still no obstruction. Appendix: Still no appendicitis. Intraperitoneal space: Still no free air. Vasculature: Unremarkable. No abdominal aortic aneurysm. Lymph nodes: Continued slightly prominent periportal nodes having normal short axis diameters. No interval enlarged nodes. Urinary bladder: Unremarkable as visualized. Reproductive: Unremarkable as visualized. Bones/joints: Marked L5-S1 disc degeneration and minimal retrolisthesis at this level again evident. Old right rib fracture. Soft tissues: No acute soft tissue finding. IMPRESSION: 1. No acute abdominal findings. Increased fat in the wall of much of the upper colon, likely unchanged, questionably related to the patient's body habitus or chronic inflammation. 2. Interval appearance of the linear area of decreased density in the right lobe of the liver, cause unclear. 3. Small left renal stone again evident. Left renal mass still suggestive of a cyst. Other findings detailed above. COMMENTS: Consistent with the [employer]'s Incidental Findings Committee white paper (J Am Ml Radiol 2018): Any incidental renal lesion less than 1 cm or classified as too small to characterize, or any incidental cystic renal lesion characterized as simple-appearing, is likely benign. No follow-up imaging is recommended for these lesions per consensus recommendations based on imaging criteria.
[2021-02-09] MEDS ORDERED: Tamsulosin 0.4 MG Cap.ER PO ONE (07:40)
[2021-02-09] MEDS ORDERED: Ketorolac 30 MG/ML SDV IVPUSH ONE (07:41)
== END 2021-02-09 07:57 | disposition home or self-care (01) ==
LOC: DL.ED 03:53
DX: N20.0 Calculus of kidney (principal); E66.9 Obesity, unspecified; Z68.30 Body mass index [BMI] 30.0-30.9, adult
CPT/HCPCS: 36415; 74177; 80053; 80305; 81001; 81025; 82150; 83690; 85025; 86140; 87086; 87088; 96372; 96374; 96375; 99283; 99284; A9270; J0500; J1170; J1885; J2405; J2765; J7030; Q9967

== ENCOUNTER 2021-02-09 23:48 | Emergency (ER) | payer MEDICAID ==
[2021-02-10] MEDS ORDERED: Ketorolac 30 MG/ML SDV IVPUSH ONE
[2021-02-10] MEDS ORDERED: Metoclopramide 10 MG/2 ML SDV IVPUSH ONE
[2021-02-10] MEDS ORDERED: Sodium Chloride 0.9% 1,000 ML IV ONE
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
[2021-02-10 00:33] LABS: ANION GAP 14.1 mEq/L (7-13); CHLORIDE,CL 104 mmol/L (98-107); SODIUM,NA 140 mmol/L (136-145)
[2021-02-10] MEDS ORDERED: HYDROmorphone 1 MG/ML Syringe IVPUSH ONE (00:45)
== END 2021-02-10 01:16 | disposition home or self-care (01) ==
LOC: DL.ED 23:48
DX: R10.11 Right upper quadrant pain (principal); R11.15 Cyclical vomiting syndrome unrelated to migraine; J45.909 Unspecified asthma, uncomplicated; E66.9 Obesity, unspecified; Z68.32 Body mass index [BMI] 32.0-32.9, adult; Z79.899 Other long term (current) drug therapy
CPT/HCPCS: 36415; 80053; 82150; 83605; 83690; 83735; 85025; 96374; 96375; 99283; 99284; J1170; J1885; J2765; J7030

== ENCOUNTER 2021-02-10 09:21 | Emergency (ER) | payer MEDICAID ==
[2021-02-10] MEDS ORDERED: Sodium Chloride 0.9% 1,000 ML IV ONE (09:46)
[2021-02-10] MEDS ORDERED: GI Cocktail Oral Solution 30 ML PO ONE ×2 (09:46→12:48)
[2021-02-10] MEDS ORDERED: Ondansetron 4 MG/2 ML SDV IVPUSH ONE (09:46)
[2021-02-10] MEDS ORDERED: Famotidine 20 MG/2 ML SDV IVPUSH ONE (09:46)
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
[2021-02-10] MEDS ORDERED: HYDROmorphone 1 MG/ML Syringe IVPUSH ONE (10:18)
[2021-02-10 10:24] LABS: ANION GAP 14.6 mEq/L (7-13); CHLORIDE,CL 106 mmol/L (98-107); SODIUM,NA 144 mmol/L (136-145)
[2021-02-10] MEDS ORDERED: Dicyclomine 10 MG Cap PO ONE (12:59)
--- NOTE | 2021-02-10 13:05 | US ---
EXAMINATION: Abdomen Ltd SEX: Female AGE: 30 years CLINICAL HISTORY: 30-year-old female with nausea, vomiting and upper abdominal pain. Significantly, history liver biopsy 5 days ago. INTERPRETATION: 1. Homogeneously echodense liver without sign of discrete intrahepatic or subcapsular hematoma. No cystic or echogenic solid hepatic parenchymal mass lesion. No abnormal dilatation of the intra or extrahepatic biliary ducts. CBD 3.4 mm. 2. No pleural effusions or ascites. 3. Gallbladder clearly demonstrated in the right upper quadrant beneath the liver margin is of normal size and anatomic configuration. No pericystic fluid, mucosal wall polyp, or mobile dependent intraluminal echogenic "shadowing" gallstones. 4. Normal pancreatic size and homogeneous parenchymal density. No peripancreatic fluid, phlegmon, cyst or solid mass. 5. Normal caliber upper abdominal aorta. Right kidney unremarkable.
[2021-02-10] MEDS ORDERED: Dicyclomine 20 MG/2 ML SDV IM ONE (13:22)
== END 2021-02-10 14:00 | disposition home or self-care (01) ==
LOC: DL.ED 09:21
DX: R10.11 Right upper quadrant pain (principal); R10.12 Left upper quadrant pain; R79.89 Other specified abnormal findings of blood chemistry; E66.9 Obesity, unspecified; J45.909 Unspecified asthma, uncomplicated; Z68.30 Body mass index [BMI] 30.0-30.9, adult; Z72.0 Tobacco use; Z86.19 Personal history of other infectious and parasitic diseases
CPT/HCPCS: 36415; 76705; 80053; 82150; 83605; 83690; 83735; 85025; 85651; 86140; 87635; 96372; 96374; 96375; 99284; A9270; J0500; J1170; J2405; J3490; J7030; U0002

== ENCOUNTER 2021-02-15 07:57 | Emergency (ER) | payer MEDICAID ==
[2021-02-15] MEDS ORDERED: Ondansetron 4 MG/2 ML SDV IVPUSH ONE (08:37)
[2021-02-15] MEDS ORDERED: Sodium Chloride 0.9% 1,000 ML IV ONE ×2 (08:37→09:46)
[2021-02-15] MEDS ORDERED: Ketorolac 30 MG/ML SDV IVPUSH ONE (08:37)
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
[2021-02-15 09:14] LABS: ANION GAP 18.6 mEq/L (7-13); CHLORIDE,CL 96 mmol/L (98-107); SODIUM,NA 138 mmol/L (136-145)
[2021-02-15] MEDS ORDERED: GI Cocktail Oral Solution 30 ML PO ONE (09:58)
== END 2021-02-15 11:22 | disposition home or self-care (01) ==
LOC: DL.ED 07:57
DX: E86.0 Dehydration (principal); R10.11 Right upper quadrant pain; R11.15 Cyclical vomiting syndrome unrelated to migraine; R74.8 Abnormal levels of other serum enzymes; J45.909 Unspecified asthma, uncomplicated; E66.9 Obesity, unspecified; Z68.30 Body mass index [BMI] 30.0-30.9, adult; Z86.19 Personal history of other infectious and parasitic diseases; Z87.891 Personal history of nicotine dependence; Z79.899 Other long term (current) drug therapy
CPT/HCPCS: 36415; 80053; 83735; 85025; 96374; 96375; 99284; 99284-25; A9270-GY; J1885; J2405; J7030

== ENCOUNTER 2021-02-16 10:39 | Emergency (ER) | payer MEDICAID ==
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
== END 2021-02-16 12:15 | disposition home or self-care (01) ==
LOC: DL.ED 10:39
DX: N30.01 Acute cystitis with hematuria (principal); R11.15 Cyclical vomiting syndrome unrelated to migraine; R11.0 Nausea; Z86.19 Personal history of other infectious and parasitic diseases; J45.909 Unspecified asthma, uncomplicated; E66.9 Obesity, unspecified; Z68.31 Body mass index [BMI] 31.0-31.9, adult; Z79.899 Other long term (current) drug therapy
CPT/HCPCS: 99283

== ENCOUNTER 2021-06-23 15:22 | Emergency (ER) | payer MEDICAID ==
[2021-06-23] MEDS ORDERED: Sodium Chloride 0.9% 10 ML Syringe FLUSH PRN (15:41)
[2021-06-23] MEDS ORDERED: Sodium Chloride 0.9% 1,000 ML IV ONE (15:41)
[2021-06-23] MEDS ORDERED: Metoclopramide 10 MG/2 ML SDV IVPUSH ONE (15:42)
[2021-06-23] MEDS ORDERED: Famotidine 20 MG/2 ML SDV IVPUSH ONE (15:42)
[2021-06-23] MEDS ORDERED: LORazepam 2 MG/ML SDV IVPUSH ONE ×2 (15:42→16:37)
[2021-06-23 16:23] LABS: CHLORIDE,CL 106 mmol/L (98-107); SODIUM,NA 144 mmol/L (136-145)
[2021-06-23] MEDS ORDERED: Haloperidol Lactate 5 MG/ML SDV IVPUSH ONE (16:37)
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
== END 2021-06-23 18:05 | disposition home or self-care (01) ==
LOC: DL.ED 15:22
DX: R11.2 Nausea with vomiting, unspecified (principal); T40.725A Adverse effect of synthetic cannabinoids, initial encounter; E66.9 Obesity, unspecified; Z68.26 Body mass index [BMI] 26.0-26.9, adult
CPT/HCPCS: 36415; 80053; 82150; 83690; 84703; 85025; 96374; 96375; 96376; 99284; J1630; J2060; J2765; J3490; J7030

== ENCOUNTER 2021-09-01 04:00 | Emergency (ER) | payer MEDICAID ==
[2021-09-01] MEDS ORDERED: Bacitracin Oint 1 GM U/D Packet TOP ONE (04:06)
[2021-09-01 04:27] LABS: AMPHETAMINES,URINE NEGATIVE (NEGATIVE); BARBITURATES,URINE NEGATIVE (NEGATIVE); BENZODIAZEPINE,URINE NEGATIVE (NEGATIVE); MDMA (ECSTASY), URINE NEGATIVE (NEGATIVE); METHADONE,URINE NEGATIVE (NEGATIVE); METHAMPHETAMINES,URINE NEGATIVE (NEGATIVE); OPIATES,URINE NEGATIVE (NEGATIVE); OXYCODONE,URINE NEGATIVE (NEGATIVE); PHENCYCLIDINE,URINE NEGATIVE (NEGATIVE); TCA,URINE NEGATIVE (NEGATIVE)
[2021-09-01 04:38] LABS: ANION GAP 19.7 mEq/L (7-13); CHLORIDE,CL 104 mmol/L (98-107); SODIUM,NA 141 mmol/L (136-145)
[2021-09-01 04:40] LABS: ACETAMINOPHEN 0 ug/mL (10-30 (Therapeutic))
== END 2021-09-01 05:11 | disposition other institution (70) ==
LOC: DL.ED 05:02
DX: S69.90XA Unspecified injury of unspecified wrist, hand and finger(s), initial encounter (principal); F10.10 Alcohol abuse, uncomplicated; E66.9 Obesity, unspecified; Z68.27 Body mass index [BMI] 27.0-27.9, adult; Y90.6 Blood alcohol level of 120-199 mg/100 ml; W26.8XXA Contact with other sharp object(s), not elsewhere classified, initial encounter
CPT/HCPCS: 36415; 80053; 80143; 80179; 80305-QW; 80307; 81003; 84703; 85025; 99284; 99285

== ENCOUNTER 2021-10-14 22:40 | Emergency (ER) | payer SELFPAY | END 2021-10-14 22:54 | disposition left against medical advice (07) | LOC: DL.ED 22:40 | DX: Z53.21 Procedure and treatment not carried out due to patient leaving prior to being seen by health care provider (principal) ==

== ENCOUNTER 2021-10-15 01:05 | Emergency (ER) | payer MEDICAID ==
[2021-10-15] MEDS ORDERED: Metoclopramide 10 MG/2 ML SDV IVPUSH ONE (01:15)
[2021-10-15] MEDS ORDERED: Sodium Chloride 0.9% 1,000 ML IV ONE (01:15)
[2021-10-15] MEDS ORDERED: fentaNYL 100 MCG/2 ML SDV IVPUSH ONE (01:23)
[2021-10-15] MEDS ORDERED: LORazepam 2 MG/ML SDV IVPUSH ONE (01:44)
[2021-10-15 01:58] LABS: ANION GAP 15.1 mEq/L (7-13); CHLORIDE,CL 97 mmol/L (98-107); SODIUM,NA 130 mmol/L (136-145)
[2021-10-15] MEDS ORDERED: cefTRIAXone 1 GM in Sodium Chloride 0.9% 50 ML IV ONE (02:03)
[2021-10-15 02:30] LABS: AMPHETAMINES,URINE NEGATIVE (NEGATIVE); BARBITURATES,URINE NEGATIVE (NEGATIVE); BENZODIAZEPINE,URINE NEGATIVE (NEGATIVE); MDMA (ECSTASY), URINE NEGATIVE (NEGATIVE); METHADONE,URINE NEGATIVE (NEGATIVE); METHAMPHETAMINES,URINE NEGATIVE (NEGATIVE); OPIATES,URINE NEGATIVE (NEGATIVE); OXYCODONE,URINE NEGATIVE (NEGATIVE); PHENCYCLIDINE,URINE NEGATIVE (NEGATIVE); TCA,URINE NEGATIVE (NEGATIVE)
[2021-10-15] MEDS ORDERED: Famotidine 20 MG/2 ML SDV IVPUSH ONE (02:46)
== END 2021-10-15 03:00 | disposition left against medical advice (07) ==
LOC: DL.ED 01:05
DX: O20.0 Threatened abortion (principal); O21.0 Mild hyperemesis gravidarum; O99.891 Other specified diseases and conditions complicating pregnancy; N12 Tubulo-interstitial nephritis, not specified as acute or chronic; O99.341 Other mental disorders complicating pregnancy, first trimester; F12.23 Cannabis dependence with withdrawal; Z3A.01 Less than 8 weeks gestation of pregnancy
CPT/HCPCS: 36415; 76815; 80053; 80305-QW; 80307; 81001; 81025; 84702; 85025; 87086; 96365; 96375; 99284-25; J0696; J2060; J2765; J3010; J3490; J7030

== ENCOUNTER 2021-10-16 07:13 | Inpatient (IN) | payer MEDICAID ==
[2021-10-16] MEDS ORDERED: Sodium Chloride 0.9% 1,000 ML IV ONE (07:24)
[2021-10-16] MEDS ORDERED: Ondansetron 4 MG/2 ML SDV IVPUSH ONE (07:34)
[2021-10-16] MEDS ORDERED: Acetaminophen 325 MG Tab PO ONE (07:41)
[2021-10-16 08:04] LABS: ANION GAP 16.3 mEq/L (7-13); CHLORIDE,CL 102 mmol/L (98-107); SODIUM,NA 141 mmol/L (136-145)
[2021-10-16] MEDS ORDERED: Famotidine 20 MG/2 ML SDV IVPUSH ONE (08:22)
[2021-10-16] MEDS ORDERED: Phenazopyridine 95 MG Tab PO ONE (08:22)
[2021-10-16] MEDS ORDERED: Promethazine 25 MG/ML SDV IM ONE (08:30)
[2021-10-16 08:33] LABS: CORONAVIRUS COVID-19 NAA POSITIVE (NEGATIVE)
[2021-10-16] MEDS ORDERED: fentaNYL 100 MCG/2 ML SDV IVPUSH ONE ×2 (10:24)
[2021-10-16] MEDS ORDERED: MVI, Adult with Vitamin K 10 ML, Folic Acid 1 MG, Thiamine 100 MG in Lactated Ringers 1... IV ONE ×4 (10:50)
[2021-10-16] MEDS ORDERED: Morphine 2 MG/ML SYRINGE IVPUSH ONE (11:04)
[2021-10-16] MEDS: Ondansetron 4 MG/2 ML SDV IVPUSH SCH ×2 (11:28→17:28)
[2021-10-16] MEDS ORDERED: methylPREDNISolone Sodium Succinate 40 MG/1 ML SDV IVPUSH SCH (12:00)
[2021-10-16] MEDS ORDERED: cefTRIAXone 1 GM in Sodium Chloride 0.9% 50 ML IV SCH (12:00)
[2021-10-16] MEDS ORDERED: Pantoprazole 40 MG in Sodium Chloride 0.9% 100 ML IV SCH ×4 (12:00)
[2021-10-16] MEDS: diphenhydrAMINE 50 MG/ML SDV IVPUSH SCH ×2 (12:14→17:28)
[2021-10-16] MEDS: Pantoprazole 40 MG Vial IVPUSH SCH (12:14)
[2021-10-16] MEDS: methylPREDNISolone Sodium Succinate 40 MG/1 ML SDV IVPUSH SCH ×2 (12:15→21:07)
[2021-10-16] MEDS: cefTRIAXone 1 GM in Sodium Chloride 0.9% 50 ML IV SCH (12:15)
[2021-10-16] MEDS: NS + KCl 20mEq/L 1,000 ML IV SCH ×2 (12:15→23:20)
[2021-10-16] MEDS: Metoclopramide 10 MG/2 ML SDV IVPUSH SCH ×2 (14:21→21:07)
[2021-10-16] MEDS: Acetaminophen 325 MG Tab PO PRN (14:22)
[2021-10-16] MEDS: Morphine 4 MG/ML Syringe IVPUSH PRN ×2 (16:43→22:44)
[2021-10-16] MEDS: Clotrimazole 1% Vaginal Crm 45 GM Tube VAG SCH (21:07)
[2021-10-17] MEDS: diphenhydrAMINE 50 MG/ML SDV IVPUSH SCH ×4 (00:39→17:22)
[2021-10-17] MEDS: Ondansetron 4 MG/2 ML SDV IVPUSH SCH ×3 (01:01→17:22)
[2021-10-17] MEDS: methylPREDNISolone Sodium Succinate 40 MG/1 ML SDV IVPUSH SCH ×3 (04:23→21:39)
[2021-10-17] MEDS: Morphine 4 MG/ML Syringe IVPUSH PRN (04:45)
[2021-10-17] MEDS: Metoclopramide 10 MG/2 ML SDV IVPUSH SCH ×3 (05:12→21:40)
[2021-10-17 06:59] LABS: CHLORIDE,CL 104 mmol/L (98-107); SODIUM,NA 138 mmol/L (136-145)
[2021-10-17] MEDS: Pantoprazole 40 MG Vial IVPUSH SCH (08:38)
[2021-10-17] MEDS: NS + KCl 20mEq/L 1,000 ML IV SCH (08:52)
[2021-10-17] MEDS: Acetaminophen 325 MG Tab PO PRN (08:53)
[2021-10-17] MEDS: cefTRIAXone 1 GM in Sodium Chloride 0.9% 50 ML IV SCH (12:08)
[2021-10-17] MEDS: Acetaminophen 500 MG Tab PO SCH ×2 (12:26→17:22)
[2021-10-17] MEDS ORDERED: Promethazine 25 MG/ML SDV IM ONE (20:51)
[2021-10-17] MEDS ORDERED: Metoclopramide 10 MG/2 ML SDV IVPUSH PRN (20:53)
[2021-10-17] MEDS: Clotrimazole 1% Vaginal Crm 45 GM Tube VAG SCH (21:40)
== END 2021-10-17 23:23 | disposition left against medical advice (07) | DRG 831 ==
LOC: DL.ED 07:13 → DL.MS 10:28
PROVIDERS: ADMIT Family Medicine; ATTEND Family Medicine
DX: O98.511 Other viral diseases complicating pregnancy, first trimester (principal); O75.3 Other infection during labor; U07.1 COVID-19; Z3A.01 Less than 8 weeks gestation of pregnancy; O21.0 Mild hyperemesis gravidarum; O26.851 Spotting complicating pregnancy, first trimester; E87.6 Hypokalemia
CPT/HCPCS: 0240U; 36415; 76817; 80048; 80053; 81001; 83605; 83735; 84100; 84702; 85025; 86140; 87040; 96372; 96374; 96375; 99285-25; A9270-GY; C9113; J0696; J1200; J2270; J2405; J2550; J2765; J2920; J3010; J3411; J3480; J3490; J7030; J7120

== ENCOUNTER 2021-10-23 09:34 | Observation (INO) | payer MEDICAID ==
[2021-10-23] MEDS ORDERED: Sodium Chloride 0.9% 10 ML Syringe FLUSH PRN (10:01)
[2021-10-23] MEDS ORDERED: diphenhydrAMINE 50 MG/ML SDV IVPUSH ONE (10:01)
[2021-10-23] MEDS ORDERED: Ondansetron 4 MG/2 ML SDV IV ONE ×3 (10:01→20:29)
[2021-10-23] MEDS ORDERED: Metoclopramide 10 MG/2 ML SDV IVPUSH ONE (10:01)
[2021-10-23] MEDS ORDERED: Sodium Chloride 0.9% 1,000 ML IV ONE (10:03)
[2021-10-23] MEDS ORDERED: LORazepam 2 MG/ML SDV ONE (10:23)
[2021-10-23 10:42] LABS: CHLORIDE,CL 97 mmol/L (98-107); SODIUM,NA 139 mmol/L (136-145)
[2021-10-23 10:52] LABS: AMPHETAMINES,URINE NEGATIVE (NEGATIVE); BARBITURATES,URINE NEGATIVE (NEGATIVE); BENZODIAZEPINE,URINE NEGATIVE (NEGATIVE); MDMA (ECSTASY), URINE NEGATIVE (NEGATIVE); METHADONE,URINE NEGATIVE (NEGATIVE); METHAMPHETAMINES,URINE NEGATIVE (NEGATIVE); OPIATES,URINE NEGATIVE (NEGATIVE); OXYCODONE,URINE NEGATIVE (NEGATIVE); PHENCYCLIDINE,URINE NEGATIVE (NEGATIVE); TCA,URINE NEGATIVE (NEGATIVE)
[2021-10-23] MEDS ORDERED: Sodium Chloride 0.9% with KCl 1,000 ML IV SCH (11:00)
[2021-10-23] MEDS ORDERED: methylPREDNISolone Sodium Succinate 40 MG/1 ML SDV IVPUSH ONE (12:08)
[2021-10-23] MEDS ORDERED: LORazepam 2 MG/ML SDV IV ONE (12:18)
[2021-10-23] MEDS ORDERED: Ketorolac 30 MG/ML SDV ONE (12:32)
[2021-10-23] MEDS ORDERED: Promethazine 25 MG/ML SDV IM PRN (13:20)
[2021-10-23] MEDS ORDERED: Metoclopramide 10 MG/2 ML SDV IVPUSH PRN (13:20)
[2021-10-23] MEDS ORDERED: Ondansetron 4 MG/2 ML SDV IVPUSH PRN (13:20)
[2021-10-23] MEDS ORDERED: Lactated Ringers 1,000 ML IV SCH (13:30)
[2021-10-23] MEDS ORDERED: Promethazine 25 MG/ML SDV IM ONE (14:27)
[2021-10-23] MEDS ORDERED: Doxycycline Monohydrate 100 MG Cap PO ONE (16:15)
[2021-10-23] MEDS ORDERED: Doxycycline 200 MG in Sodium Chloride 0.9% 100 ML IV ONE (17:15)
[2021-10-23] MEDS ORDERED: Lidocaine 1% with EPINEPHrine 1:100,000 30 ML MDV INJECT ONE (17:30)
[2021-10-23] MEDS ORDERED: Acetaminophen 650 MG Supp RECTAL STA (17:42)
[2021-10-23] MEDS ORDERED: Lidocaine 1% with EPINEPHrine 1:100,000 20 ML MDV ONE (20:29)
[2021-10-23] MEDS ORDERED: Famotidine 20 MG/2 ML SDV IV ONE (20:29)
[2021-10-23] MEDS ORDERED: Midazolam 1 MG/ML 2 ML SDV IV ONE (20:29)
[2021-10-23] MEDS ORDERED: fentaNYL 100 MCG/2 ML SDV IV ONE (20:29)
[2021-10-23] MEDS ORDERED: Ketorolac 30 MG/ML SDV IVPUSH ONE (20:29)
[2021-10-23] MEDS ORDERED: Lactated Ringers 1,000 ML IV ONE (20:29)
[2021-10-23] MEDS ORDERED: Propofol 200 MG/20 ML SDV IV ONE (20:29)
[2021-10-23] MEDS ORDERED: Dexamethasone 4 MG/ML SDV IV ONE (20:29)
== END 2021-10-23 20:30 | disposition home or self-care (01) ==
LOC: DL.SDS 09:34 → DL.MS 13:23
PROVIDERS: ADMIT Student in an Organized Health Care Education/Training Program; ATTEND Student in an Organized Health Care Education/Training Program
DX: O02.1 Missed abortion (principal); R11.10 Vomiting, unspecified; F17.210 Nicotine dependence, cigarettes, uncomplicated; K21.9 Gastro-esophageal reflux disease without esophagitis; Z86.16 Personal history of COVID-19
CPT/HCPCS: 00940; 36415; 59820; 76817; 80053; 80305; 81001; 82150; 83605; 83690; 83735; 84702; 85025; 87040; 93975; 96365; 96372; 96375; 96376; 99285; A9270; G0378; J1100; J1200; J1885; J2060; J2250; J2405; J2550; J2704; J2765; J2920; J3010; J3480; J3490; J7030; J7120

== ENCOUNTER 2022-02-14 22:50 | Emergency (ER) | payer MEDICAID ==
[2022-02-14] MEDS ORDERED: Sodium Chloride 0.9% 1,000 ML IV ONE (22:52)
[2022-02-14] MEDS ORDERED: Ondansetron 4 MG/2 ML SDV IVPUSH ONE (22:53)
[2022-02-14 23:46] LABS: ANION GAP 17.6 mEq/L (7-13)
[2022-02-14] MEDS ORDERED: Promethazine 25 MG/ML SDV IM ONE (23:54)
[2022-02-14] MEDS ORDERED: Promethazine 25 MG/ML SDV ONE (23:54)
[2022-02-14] MEDS ORDERED: Sodium Chloride 0.9% 100 ML ONE (23:54)
[2022-02-15] MEDS ORDERED: Sodium Chloride 0.9% 1,000 ML IV ONE (01:30)
== END 2022-02-15 01:54 | disposition left against medical advice (07) ==
LOC: DL.ED 22:50
DX: O99.891 Other specified diseases and conditions complicating pregnancy (principal); R10.30 Lower abdominal pain, unspecified; O99.331 Smoking (tobacco) complicating pregnancy, first trimester; F17.210 Nicotine dependence, cigarettes, uncomplicated; Z86.16 Personal history of COVID-19; Z3A.01 Less than 8 weeks gestation of pregnancy
CPT/HCPCS: 36415; 80053; 81001; 81025; 83735; 85025; 96361; 96372; 96374; 99282; 99285-25; J2405; J2550; J7030

== ENCOUNTER 2022-02-16 10:11 | Emergency (ER) | payer MEDICAID | END 2022-02-16 10:24 | disposition left against medical advice (07) | LOC: DL.ED 10:11 | DX: Z53.21 Procedure and treatment not carried out due to patient leaving prior to being seen by health care provider (principal) ==

== ENCOUNTER 2022-02-19 12:08 | Inpatient (IN) | payer MEDICAID ==
[2022-02-19] MEDS ORDERED: Lactated Ringers 1,000 ML IV ONE (12:30)
[2022-02-19] MEDS: Ondansetron 4 MG/2 ML SDV IVPUSH PRN (13:32)
[2022-02-19 13:56] LABS: ANION GAP 8.6 mEq/L (7-13)
[2022-02-19] MEDS ORDERED: MVI, Adult with Vitamin K 10 ML, Folic Acid 1 MG, Thiamine 100 MG in Lactated Ringers 1... IV ONE ×4 (14:00)
[2022-02-19] MEDS ORDERED: Albuterol 0.083% 2.5 MG/3 ML Neb Soln NEB PRN (14:36)
[2022-02-19] MEDS: methylPREDNISolone Sodium Succinate 40 MG/1 ML SDV IVPUSH SCH ×2 (14:47→22:05)
[2022-02-19] MEDS ORDERED: Albuterol/Ipratropium 3.0-0.5 MG/3 ML Neb Soln ONE (14:48)
[2022-02-19] MEDS ORDERED: Albuterol 0.083% 2.5 MG/3 ML Neb Soln ONE (14:52)
[2022-02-19] MEDS ORDERED: Sodium Chloride 0.9% 20 ML SDV IV PRN (14:56)
[2022-02-19] MEDS: Sodium Chloride 0.9% 20 ML SDV IV SCH ×2 (14:57→22:06)
[2022-02-19] MEDS ORDERED: Potassium Chloride 20 MEQ in Premix Bag 1 BAG IV SCH (15:30)
[2022-02-19] MEDS: Lactated Ringers 1,000 ML IV SCH ×2 (16:16→20:31)
[2022-02-19] MEDS: Potassium Chloride 20 MEQ in Premix Bag 1 BAG IV SCH ×2 (16:23→20:32)
[2022-02-19] MEDS: Promethazine 25 MG/ML SDV IM PRN (17:50)
[2022-02-19] MEDS ORDERED: GI Cocktail Oral Solution 30 ML PO ONE (18:32)
[2022-02-19] MEDS: Montelukast 10 MG Tab PO SCH (20:29)
[2022-02-19] MEDS: Calcium Carbonate 500 MG Tab.Chew PO PRN (20:48)
[2022-02-19] MEDS ORDERED: Pantoprazole 40 MG Vial IVPUSH SCH (21:00)
[2022-02-19] MEDS ORDERED: Patient's Own Medication 1 Each INH SCH (21:00)
[2022-02-19] MEDS: diphenhydrAMINE 50 MG/ML SDV IVPUSH PRN (22:04)
[2022-02-20] MEDS: Potassium Chloride 20 MEQ in Premix Bag 1 BAG IV SCH (02:10)
[2022-02-20] MEDS: Lactated Ringers 1,000 ML IV SCH ×2 (02:12→09:44)
[2022-02-20] MEDS: Promethazine 25 MG/ML SDV IM PRN ×3 (04:08→16:57)
[2022-02-20] MEDS: ADVAIR 100/50 INH SCH ×3 (04:15→21:20)
[2022-02-20] MEDS: diphenhydrAMINE 50 MG/ML SDV IVPUSH PRN ×2 (05:01→22:09)
[2022-02-20] MEDS: Ondansetron 4 MG/2 ML SDV IVPUSH PRN (05:03)
[2022-02-20] MEDS: Sodium Chloride 0.9% 20 ML SDV IV SCH ×2 (06:11→14:10)
[2022-02-20] MEDS: methylPREDNISolone Sodium Succinate 40 MG/1 ML SDV IVPUSH SCH ×3 (06:11→21:12)
[2022-02-20] MEDS: Calcium Carbonate 500 MG Tab.Chew PO PRN (06:12)
[2022-02-20] MEDS ORDERED: Metoclopramide 10 MG/2 ML SDV IVPUSH ONE (08:50)
[2022-02-20] MEDS ORDERED: LORazepam 2 MG/ML SDV IVPUSH ONE (09:59)
[2022-02-20] MEDS ORDERED: Metoclopramide 10 MG/2 ML SDV IVPUSH PRN (10:26)
[2022-02-20] MEDS: GI Cocktail Oral Solution 30 ML PO PRN ×2 (10:38→16:55)
[2022-02-20] MEDS: Pantoprazole 40 MG Vial IVPUSH SCH ×2 (10:43→22:08)
[2022-02-20] MEDS ORDERED: MVI, Adult with Vitamin K 10 ML SDV IV ONE (10:55)
[2022-02-20] MEDS ORDERED: Thiamine 100 MG in Sodium Chloride 0.9% 100 ML IV ONE (10:57)
[2022-02-20] MEDS ORDERED: Lactated Ringers 1,000 ML IV ONE (10:58)
[2022-02-20] MEDS ORDERED: Folic Acid 1 MG in Sodium Chloride 0.9% 50 ML IV ONE (10:58)
[2022-02-20] MEDS ORDERED: MVI, Adult with Vitamin K 10 ML, Folic Acid 1 MG, Thiamine 100 MG in Lactated Ringers 1... IV ONE ×4 (11:15)
[2022-02-20] MEDS: Ondansetron 4 MG/2 ML SDV IVPUSH SCH ×2 (14:14→21:19)
[2022-02-20] MEDS ORDERED: Acetaminophen 500 MG Tab PO PRN (20:02)
[2022-02-20] MEDS: Montelukast 10 MG Tab PO SCH (21:11)
[2022-02-20 21:32] LABS: METHAMPHETAMINES,URINE NEGATIVE (NEGATIVE)
[2022-02-20 21:33] LABS: AMPHETAMINES,URINE NEGATIVE (NEGATIVE); BARBITURATES,URINE NEGATIVE (NEGATIVE); BENZODIAZEPINE,URINE POSITIVE (NEGATIVE); MDMA (ECSTASY), URINE NEGATIVE (NEGATIVE); METHADONE,URINE NEGATIVE (NEGATIVE); OPIATES,URINE NEGATIVE (NEGATIVE); OXYCODONE,URINE NEGATIVE (NEGATIVE); PHENCYCLIDINE,URINE NEGATIVE (NEGATIVE); TCA,URINE NEGATIVE (NEGATIVE)
[2022-02-20] MEDS: LORazepam 2 MG/ML SDV IVPUSH PRN (22:08)
[2022-02-21] MEDS: Lactated Ringers 1,000 ML IV SCH ×2 (02:56→08:26)
[2022-02-21] MEDS: methylPREDNISolone Sodium Succinate 40 MG/1 ML SDV IVPUSH SCH ×3 (06:06→22:04)
[2022-02-21] MEDS: Sodium Chloride 0.9% 20 ML SDV IV SCH ×4 (06:06→22:06)
[2022-02-21] MEDS: Ondansetron 4 MG/2 ML SDV IVPUSH SCH ×3 (06:07→22:05)
[2022-02-21] MEDS: ADVAIR 100/50 INH SCH ×2 (08:16→22:05)
[2022-02-21] MEDS: LORazepam 2 MG/ML SDV IVPUSH PRN ×2 (08:23→22:05)
[2022-02-21] MEDS: Pantoprazole 40 MG Vial IVPUSH SCH ×2 (09:53→22:06)
[2022-02-21] MEDS ORDERED: MVI, Adult with Vitamin K 10 ML, Folic Acid 1 MG, Thiamine 100 MG in Lactated Ringers 1... IV ONE ×4 (10:31)
[2022-02-21] MEDS ORDERED: Lactated Ringers 1,000 ML IV SCH (10:45)
[2022-02-21 12:35] LABS: ANION GAP 14.4 mEq/L (7-13)
[2022-02-21] MEDS: Montelukast 10 MG Tab PO SCH (22:05)
[2022-02-21] MEDS: diphenhydrAMINE 50 MG/ML SDV IVPUSH PRN (22:05)
[2022-02-21] MEDS: ceFAZolin 2 GM in Premix Bag 1 BAG IV SCH (22:26)
[2022-02-22] MEDS: methylPREDNISolone Sodium Succinate 40 MG/1 ML SDV IVPUSH SCH (05:38)
[2022-02-22] MEDS: Ondansetron 4 MG/2 ML SDV IVPUSH SCH (05:38)
[2022-02-22] MEDS: ceFAZolin 2 GM in Premix Bag 1 BAG IV SCH ×2 (05:39→13:06)
[2022-02-22] MEDS: Sodium Chloride 0.9% 20 ML SDV IV SCH (05:39)
[2022-02-22] MEDS: Pantoprazole 40 MG Vial IVPUSH SCH ×2 (09:21→09:36)
[2022-02-22] MEDS: LORazepam 2 MG/ML SDV IVPUSH PRN (09:25)
[2022-02-22] MEDS: ADVAIR 100/50 INH SCH (09:27)
[2022-02-22] MEDS ORDERED: Promethazine 25 MG Tab ONE (10:38)
[2022-02-22] MEDS ORDERED: Cephalexin 500 MG Cap ONE (10:39)
[2022-02-22] MEDS ORDERED: predniSONE 20 MG Tab PO SCH (12:00)
[2022-02-22] MEDS ORDERED: Cephalexin 500 MG Cap PO ONE (13:37)
[2022-02-22] MEDS ORDERED: Promethazine 25 MG Tab PO ONE (13:37)
[2022-02-23] MEDS ORDERED: predniSONE 20 MG Tab PO SCH (08:00)
== END 2022-02-22 13:38 | disposition home or self-care (01) | DRG 832 ==
LOC: UNDOADMIN 12:08 → DL.MS 12:08
PROVIDERS: ADMIT Student in an Organized Health Care Education/Training Program; ATTEND Student in an Organized Health Care Education/Training Program
DX: O21.0 Mild hyperemesis gravidarum (principal); O99.321 Drug use complicating pregnancy, first trimester; Z20.822 Contact with and (suspected) exposure to COVID-19; F12.10 Cannabis abuse, uncomplicated; O99.281 Endocrine, nutritional and metabolic diseases complicating pregnancy, first trimester; E87.6 Hypokalemia; Z3A.01 Less than 8 weeks gestation of pregnancy
CPT/HCPCS: 36415; 80053; 80305-QW; 81001; 81003; 83690; 84132; 85025; 87040; 87077; 87186; 94640; A9270-GY; C9113; J0690; J1200; J2060; J2405; J2550; J2765; J2920; J3411; J3480; J3490; J7120; J7512; J7613-GY; U0002

== ENCOUNTER 2022-10-13 00:03 | Inpatient (IN) | payer MEDICAID ==
[~2022-10-13 00:03] MED LIST changes: +Acetaminophen 325 MG Tab PO PRN; +Carboprost Tromethamine 250 MCG/1 ML Amp IM PRN; +Lactated Ringers 1,000 ML IV SCH; +Lidocaine 1% 30 ML SDV INJECT PRN; -Midazolam 1 MG/ML 2 ML SDV ONE; +Misoprostol 400 MCG (4 X 100 MCG TAB) RECTAL PRN; +Sodium Chloride 0.9% 10 ML Syringe FLUSH PRN; +Tranexamic Acid 1,000 MG in Sodium Chloride 0.9% 100 ML IV PRN; -fentaNYL 100 MCG/2 ML SDV ONE
[2022-10-13] MEDS: Lactated Ringers 1,000 ML IV SCH ×4 (00:32→23:00)
[2022-10-13] MEDS: Misoprostol 25 MCG (1/4 of 100 MCG) Tab VAG PRN ×3 (00:51→10:35)
[2022-10-13] MEDS ORDERED: Famotidine 20 MG Tab PO ONE (09:28)
[2022-10-13] MEDS: Sodium Chloride 0.9% 10 ML Syringe FLUSH SCH (10:21)
[2022-10-13] MEDS ORDERED: hydrOXYzine HCl 25 MG Tab PO ONE ×2 (14:39→17:19)
[2022-10-13] MEDS: Oxytocin/Normal Saline 30 UNIT/500 ML BAG IV SCH (14:58)
[2022-10-13] MEDS: Ondansetron 4 MG/2 ML SDV IVPUSH PRN ×2 (17:07→21:42)
[2022-10-13] MEDS ORDERED: fentaNYL 100 MCG/2 ML SDV ITHECAL ONE (22:24)
[2022-10-13] MEDS ORDERED: fentaNYL 100 MCG/2 ML SDV ONE (22:24)
[2022-10-13] MEDS ORDERED: Sodium Bicarbonate 4.2% 2.5 MEQ/5 ML SDV ONE ×2 (22:24→22:25)
[2022-10-13] MEDS ORDERED: Dexmedetomidine 200 MCG/2 ML SDV IV ONE (22:24)
[2022-10-13] MEDS ORDERED: Sodium Chloride 0.9% 20 ML SDV ONE (22:24)
[2022-10-14] MEDS: Lactated Ringers 1,000 ML IV SCH ×5 (02:15→20:25)
[2022-10-14] MEDS ORDERED: hydrOXYzine HCl 25 MG Tab PO ONE (05:57)
[2022-10-14] MEDS ORDERED: Sodium Chloride 0.9% 20 ML SDV ONE (06:35)
[2022-10-14] MEDS: Ondansetron 4 MG/2 ML SDV IVPUSH PRN (06:35)
[2022-10-14] MEDS ORDERED: Dexmedetomidine 200 MCG/2 ML SDV IT ONE (06:35)
[2022-10-14] MEDS ORDERED: fentaNYL 100 MCG/2 ML SDV ONE (06:35)
[2022-10-14] MEDS ORDERED: Sodium Bicarbonate 4.2% 2.5 MEQ/5 ML SDV ONE ×2 (06:35)
[2022-10-14] MEDS ORDERED: ceFAZolin 2 GM Vial ONE (11:03)
[2022-10-14] MEDS ORDERED: Oxytocin/Normal Saline 60 UNIT/1,000 ML BAG ONE (11:04)
[2022-10-14] MEDS ORDERED: ceFAZolin 2 GM Vial IVPUSH ONE (11:04)
[2022-10-14] MEDS ORDERED: Methylergonovine 0.2 MG/1 ML Amp IM PRN (11:05)
[2022-10-14] MEDS ORDERED: Naloxone 2 MG/2 ML Syringe IVPUSH PRN (11:05)
[2022-10-14] MEDS ORDERED: ePHEDrine 50 MG/ML SDV IVPUSH PRN (11:05)
[2022-10-14] MEDS ORDERED: diphenhydrAMINE 50 MG/ML SDV IVPUSH PRN (11:05)
[2022-10-14] MEDS ORDERED: Citric Acid/Sodium Citrate Solution 30 ML Cup ONE (11:20)
[2022-10-14] MEDS ORDERED: Citric Acid/Sodium Citrate Solution 30 ML Cup PO ONE (11:21)
[2022-10-14] MEDS ORDERED: Misoprostol 400 MCG (4 X 100 MCG TAB) ONE (12:17)
[2022-10-14] MEDS: Oxytocin/Normal Saline 30 UNIT/500 ML BAG IV SCH (12:36)
[2022-10-14] MEDS: Simethicone 80 MG Tab.Chew PO SCH ×2 (17:46→17:57)
[2022-10-14] MEDS: Sodium Chloride 0.9% 10 ML Syringe FLUSH SCH (17:47)
[2022-10-14] MEDS: Ketorolac 30 MG/ML SDV IVPUSH SCH (17:57)
[2022-10-15] MEDS: Ketorolac 30 MG/ML SDV IVPUSH SCH ×2 (00:11→06:35)
[2022-10-15] MEDS: Simethicone 80 MG Tab.Chew PO SCH ×5 (00:14→20:46)
[2022-10-15] MEDS: Sodium Chloride 0.9% 10 ML Syringe FLUSH SCH ×3 (00:14→21:00)
[2022-10-15] MEDS: Docusate Sodium 100 MG Cap PO PRN (08:44)
[2022-10-15] MEDS: Acetaminophen/oxyCODONE 325-5 MG Tab PO PRN ×4 (08:44→20:47)
[2022-10-15] MEDS: Prenatal Multivitamin with Calcium/Folic Acid/Iron Tab PO SCH (08:44)
[2022-10-15] MEDS: Ibuprofen 800 MG Tab PO PRN (14:02)
[2022-10-16] MEDS: Ibuprofen 800 MG Tab PO PRN (01:54)
[2022-10-16] MEDS: Acetaminophen/oxyCODONE 325-5 MG Tab PO PRN ×2 (05:05→08:50)
[2022-10-16] MEDS: Simethicone 80 MG Tab.Chew PO SCH (08:49)
[2022-10-16] MEDS: Prenatal Multivitamin with Calcium/Folic Acid/Iron Tab PO SCH (08:50)
[2022-10-16] MEDS: Docusate Sodium 100 MG Cap PO PRN (08:50)
[2022-10-16] MEDS: Sodium Chloride 0.9% 10 ML Syringe FLUSH SCH ×2 (09:09→10:10)
== END 2022-10-16 10:58 | disposition home or self-care (01) | DRG 788 ==
LOC: DL.OBCHECK 00:03 → DL.OB 00:05 → UNDOADMOB 00:05 → OBSVTOIN 11:55 → INTOOBSV 11:55 → DL.OB 10-14 11:55 → OBSVTOIN 10-14 11:55 → UNDODISIN 10-16 10:58
PROVIDERS: ADMIT Family Medicine; ATTEND Family Medicine
PROC: 10D00Z1 Extraction of Products of Conception, Low, Open Approach (ICD-10-PCS; principal; 2022-10-13)
PROC: 10907ZC Drainage of Amniotic Fluid, Therapeutic from Products of Conception, Via Natural or Artificial Opening (ICD-10-PCS; 2022-10-13)
PROC: 10H07YZ Insertion of Other Device into Products of Conception, Via Natural or Artificial Opening (ICD-10-PCS; 2022-10-13)
PROC: 3E0P7VZ Introduction of Hormone into Female Reproductive, Via Natural or Artificial Opening (ICD-10-PCS; 2022-10-14)
DX: O48.0 Post-term pregnancy (principal); Z37.0 Single live birth; Z3A.40 40 weeks gestation of pregnancy; O99.02 Anemia complicating childbirth; D64.9 Anemia, unspecified; Z86.16 Personal history of COVID-19; O99.334 Smoking (tobacco) complicating childbirth; F17.210 Nicotine dependence, cigarettes, uncomplicated; J45.40 Moderate persistent asthma, uncomplicated; O99.52 Diseases of the respiratory system complicating childbirth; O76 Abnormality in fetal heart rate and rhythm complicating labor and delivery; O62.1 Secondary uterine inertia; Z20.822 Contact with and (suspected) exposure to COVID-19; Z98.890 Other specified postprocedural states; Z86.19 Personal history of other infectious and parasitic diseases
CPT/HCPCS: 01967; 36415; 51701; 85027; 86850; 86900; 86901; A9270-GY; J1885; J2405; J2590; J3010; J3490; J7120; U0002

== ENCOUNTER 2023-07-11 14:56 | Emergency (ER) | payer SELFPAY | END 2023-07-11 16:20 | disposition home or self-care (01) | LOC: DL.ED 14:56 | DX: Z53.21 Procedure and treatment not carried out due to patient leaving prior to being seen by health care provider (principal) | CPT/HCPCS: 99283 ==

== ENCOUNTER 2023-11-13 07:18 | Emergency (ER) | payer MEDICAID ==
[2023-11-13] MEDS ORDERED: Metoclopramide 10 MG/2 ML SDV ONE (08:13)
== END 2023-11-13 07:20 | disposition left against medical advice (07) ==
LOC: DL.ED 07:18
DX: Z53.21 Procedure and treatment not carried out due to patient leaving prior to being seen by health care provider (principal)

== ENCOUNTER 2024-01-30 10:02 | Inpatient (IN) | payer MEDICAID ==
[~2024-01-30 10:02] MED LIST changes: +Acetaminophen/oxyCODONE 325-5 MG Tab PO PRN; +Docusate Sodium 100 MG Cap PO PRN; -Lactated Ringers 1,000 ML IV SCH; -Lidocaine 1% 30 ML SDV INJECT PRN; +Measles, Mumps & Rubella Vaccine 0.5 ML SDV SUBCUT ONE; +Methylergonovine 0.2 MG/1 ML Amp IM PRN; +Naloxone 2 MG/2 ML Syringe IVPUSH PRN; +Ondansetron 4 MG/2 ML SDV IVPUSH PRN; -Sodium Chloride 0.9% 10 ML Syringe FLUSH PRN; +diphenhydrAMINE 50 MG/ML SDV IVPUSH PRN; +ePHEDrine 50 MG/ML SDV IVPUSH PRN
[2024-01-30] MEDS: Lactated Ringers 1,000 ML IV SCH ×2 (10:50→16:15)
[2024-01-30 11:15] LABS: HEMATOCRIT 35.2 % (37.0-47.0); HEMOGLOBIN 11.6 g/dL (12.0-16.0); MEAN CORPUSCULAR HEMOGLOBIN 28.9 pg (27.0-34.0); MEAN CORPUSCULAR VOLUME 87.8 fL (80-100); RED BLOOD CELL COUNT 4.01 10^6/uL (4.2-5.4); WHITE BLOOD CELL COUNT,WBC 8.9 10^3/uL (5.0-10.0)
[2024-01-30] MEDS ORDERED: Oxytocin/Normal Saline 30 UNIT/500 ML BAG ONE (11:30)
[2024-01-30] MEDS ORDERED: Dexamethasone 4 MG/ML SDV ONE (11:36)
[2024-01-30] MEDS ORDERED: Ondansetron 4 MG/2 ML SDV ONE (11:36)
[2024-01-30] MEDS ORDERED: Oxytocin 10 Units/1 ML SDV ONE (11:36)
[2024-01-30] MEDS ORDERED: Phenylephrine 1% 10 MG/ML SDV ONE (11:37)
[2024-01-30] MEDS ORDERED: Ketorolac 30 MG/ML SDV ONE (11:37)
[2024-01-30] MEDS ORDERED: ceFAZolin 2 GM Vial ONE (11:37)
[2024-01-30] MEDS: Oxytocin/Normal Saline 30 UNIT/500 ML BAG IV SCH (12:53)
[2024-01-30] MEDS: Prenatal Multivitamin with Calcium/Folic Acid/Iron Tab PO SCH (14:07)
[2024-01-30] MEDS: Simethicone 80 MG Tab.Chew PO SCH ×2 (14:08→17:30)
[2024-01-30] MEDS ORDERED: Acetaminophen 325 MG Tab PO PRN (15:49)
[2024-01-30] MEDS ORDERED: Carboprost Tromethamine 250 MCG/1 ML Amp IM PRN (15:50)
[2024-01-30] MEDS ORDERED: ePHEDrine 50 MG/ML SDV IVPUSH PRN (15:51)
[2024-01-30] MEDS ORDERED: Misoprostol 400 MCG (4 X 100 MCG TAB) RECTAL PRN (15:52)
[2024-01-30] MEDS ORDERED: Methylergonovine 0.2 MG/1 ML Amp IM PRN (15:52)
[2024-01-30] MEDS ORDERED: Naloxone 2 MG/2 ML Syringe IVPUSH PRN (15:53)
[2024-01-30] MEDS ORDERED: Tranexamic Acid 1,000 MG in Sodium Chloride 0.9% 100 ML IV PRN (15:53)
[2024-01-30] MEDS: Ondansetron 4 MG/2 ML SDV IVPUSH PRN (15:56)
[2024-01-30] MEDS ORDERED: Oxytocin/Normal Saline 30 UNIT/500 ML BAG IV SCH (16:00)
[2024-01-30] MEDS: Ketorolac 30 MG/ML SDV IVPUSH SCH ×2 (18:06→19:25)
[2024-01-30] MEDS ORDERED: Ketorolac 30 MG/ML SDV IVPUSH SCH (18:45)
[2024-01-30] MEDS: diphenhydrAMINE 50 MG/ML SDV IVPUSH PRN (20:45)
[2024-01-30] MEDS: Acetaminophen/oxyCODONE 325-5 MG Tab PO PRN (22:10)
[2024-01-31] MEDS ORDERED: Ibuprofen 800 MG Tab PO PRN (06:00)
[2024-01-31] MEDS: Acetaminophen/oxyCODONE 325-5 MG Tab PO PRN (06:09)
[2024-01-31] MEDS: Docusate Sodium 100 MG Cap PO PRN (09:22)
[2024-01-31] MEDS: Prenatal Multivitamin with Calcium/Folic Acid/Iron Tab PO SCH (09:23)
[2024-01-31] MEDS: Ibuprofen 800 MG Tab PO PRN (17:41)
[2024-01-31 18:13] LABS: HEMATOCRIT 32.9 % (37.0-47.0); HEMOGLOBIN 10.5 g/dL (12.0-16.0); MEAN CORPUSCULAR HEMOGLOBIN 28.8 pg (27.0-34.0); MEAN CORPUSCULAR HGB CONC 31.9 g/dL (33.0-35.0); MEAN CORPUSCULAR VOLUME 90.4 fL (80-100); RED BLOOD CELL COUNT 3.64 10^6/uL (4.2-5.4); WHITE BLOOD CELL COUNT,WBC 8.1 10^3/uL (5.0-10.0)
[2024-02-01] MEDS: Ferrous Sulfate 325 MG Tab PO SCH (08:11)
== END 2024-02-01 10:30 | disposition home or self-care (01) | DRG 788 ==
LOC: DL.OB 10:02 → OBSVTOIN 12:19 → DL.OB 12:19
PROVIDERS: ADMIT Family Medicine; ATTEND Family Medicine
PROC: 10D00Z1 Extraction of Products of Conception, Low, Open Approach (ICD-10-PCS; principal; 2024-01-30 12:00)
DX: O34.211 Maternal care for low transverse scar from previous cesarean delivery (principal); O99.52 Diseases of the respiratory system complicating childbirth; J45.909 Unspecified asthma, uncomplicated; Z86.19 Personal history of other infectious and parasitic diseases; O69.81X0 Labor and delivery complicated by cord around neck, without compression, not applicable or unspecified; O90.81 Anemia of the puerperium; Z3A.39 39 weeks gestation of pregnancy; Z37.0 Single live birth; Z86.16 Personal history of COVID-19
CPT/HCPCS: 01961; 36415; 85027; 86850; 86900; 86901; A9270-GY; J1200; J1885; J2405; J2590; J7120

== ENCOUNTER 2024-11-04 12:18 | Emergency (ER) | payer MEDICAID ==
[2024-11-04] MEDS: diphenhydrAMINE 50 MG/ML SDV IVPUSH ONE (14:00)
[2024-11-04] MEDS: Haloperidol Lactate 5 MG/ML SDV IVPUSH ONE (14:00)
[2024-11-04] MEDS: Sodium Chloride 0.9% 1,000 ML IV SCH (14:05)
[2024-11-04] MEDS: Promethazine 25 MG/ML SDV IM ONE (14:16)
[2024-11-04 14:18] LABS: BASOPHILS PERCENT AUTO 0.1 % (0.0-1.0); HEMATOCRIT 48.9 % (37.0-47.0); LYMPHOCYTES PERCENT AUTO 6.2 % (20.5-50.1); MEAN CORPUSCULAR HGB CONC 32.7 g/dL (33.0-35.0); MEAN CORPUSCULAR VOLUME 85.6 fL (80-100); MONOCYTES PERCENT AUTO 1.4 % (2-8); NEUTROPHILS PERCENT AUTO 92.3 % (42.2-75.2); PLATELET COUNT,PLT 232 10^3/uL (150-450); RED BLOOD CELL COUNT 5.71 10^6/uL (4.2-5.4); WHITE BLOOD CELL COUNT,WBC 15.7 10^3/uL (5.0-10.0)
[2024-11-04 14:33] LABS: ANION GAP 17.3 mEq/L (7-13); CALCIUM 9.7 mg/dL (8.5-10.1); CREATININE 1.13 mg/dL (0.55-1.02); EST CRCL DRUG DOSING (CG) 59.12 mL/min; POTASSIUM,K 4.3 mmol/L (3.5-5.1)
== END 2024-11-04 15:15 | disposition home or self-care (01) ==
LOC: DL.ED 12:18
DX: R11.11 Vomiting without nausea (principal); F12.10 Cannabis abuse, uncomplicated; J45.909 Unspecified asthma, uncomplicated; K21.9 Gastro-esophageal reflux disease without esophagitis; Z86.16 Personal history of COVID-19; Z79.899 Other long term (current) drug therapy
CPT/HCPCS: 36415; 80048; 85025; 96361; 96372; 96374; 96375; 99283; 99284; J1200; J1630; J2550; J7030